=== PATIENT | male | born 1960 | race Asian ===

== ENCOUNTER 2020-02-02 10:30 | Inpatient (IN) | payer MEDICAID ==
[~2020-02-02] VITALS: Ht 170.2 cm; Wt 74.4 kg
--- NOTE | 2020-02-02 10:21 | NUR ---
ED Nurse Note: PT ARRIVED WITH RA 68 FROM HOME D/T "COVID LIKE SYMPTOMS" PER EMS. X 2 WEEKS. PT DENIES PAIN, COUGH, FEVER, RESPIRTAORY SYMPTOMS. PT AFEBRILE UPON TRIAGE 98.6F ORAL. PT CALM AND COOPERATIVE. PT IV SITE ESTABLISEHD PER RA[facility]
[2020-02-02 10:28] VITALS: BP 173/84
--- NOTE | 2020-02-02 10:42 | NUR ---
ED Nurse Note: PT BLOOD SPECIMEN COLLECTED AND SENT TO LAB
--- NOTE | 2020-02-02 11:00 | NUR ---
ED Nurse Note: Informed pt that urine sample needs to be collected, provided pt with urinary bottle.
[2020-02-02 11:11] LABS: BASOPHILS % (AUTO) 1.2 % (0.0-2.0); EOSINOPHILS % (AUTO) 0.7 % (0.0-3.0); HEMATOCRIT 41.1 % (42.0-52.0); HEMOGLOBIN 12.2 G/DL (14.2-18.0); LYMPHOCYTES % (AUTO) 18.5 % (20.0-45.0); MEAN CORPUSCULAR VOLUME 70 FL (80-99); MONOCYTES % (AUTO) 6.9 % (1.0-10.0); NEUTROPHILS % (AUTO) 72.8 % (45.0-75.0); PLATELET COUNT 264 K/UL (150-450); RED BLOOD COUNT 5.87 M/UL (4.70-6.10); RED CELL DISTRIBUTION WIDTH 13.5 % (11.6-14.8); WHITE BLOOD COUNT 8.4 K/UL (4.8-10.8)
--- NOTE | 2020-02-02 11:17 | NUR ---
ED Nurse Note: XRAY AT BEDSIDE
[2020-02-02 11:19] LABS: ALANINE AMINOTRANSFERASE 26 U/L (12-78); ALKALINE PHOSPHATASE 60 U/L (46-116); ANION GAP 11 mmol/L (5-15); ASPARTATE AMINO TRANSFERASE 21 U/L (15-37); BILIRUBIN,TOTAL 0.2 MG/DL (0.2-1.0); BLOOD UREA NITROGEN 15 mg/dL (7-18); CARBON DIOXIDE 19 MMOL/L (21-32); CHLORIDE 115 MMOL/L (98-107); CREATINE KINASE 112 U/L (26-308); CREATININE 0.6 MG/DL (0.55-1.30); SODIUM 144 MMOL/L (136-145)
[2020-02-02 11:20] LABS: CALCIUM 5.8 MG/DL (8.5-10.1)
[2020-02-02 11:37] LABS: ALBUMIN 2.1 G/DL (3.4-5.0)
--- NOTE | 2020-02-02 12:08 | NUR ---
ED Nurse Note: pt asleep in bed. no distress noted at this time.
--- NOTE | 2020-02-02 12:22 | Diagnostic Imaging Report ---
Procedure: XRAY Chest 1v Reason for study: Cough. Comparison films: None. FINDINGS: A single one view chest is obtained. Vascularity is normal. The lung jauregui are clear bilaterally. Cardiac and mediastinal silhouette are within normal limits. CP angles are sharp. The bony thorax appear unremarkable. IMPRESSION: NO ACUTE CARDIOPULMONARY DISEASE.
[2020-02-02 12:30] VITALS: BP 155/68
--- NOTE | 2020-02-02 12:30 | NUR ---
ED Nurse Note: Pt unable to provide urine at this time.
[2020-02-02] MEDS ORDERED: Calcium Gluconate 1gm/50ml 50 ML IVPB ONE (13:00)
--- NOTE | 2020-02-02 13:17 | NUR ---
ED Nurse Note: Pt taken to CT on [place]
--- NOTE | 2020-02-02 13:25 | NUR ---
ED Nurse Note: Pt returned from CT
--- NOTE | 2020-02-02 13:50 | Diagnostic Imaging Report ---
EXAM: CT CT Head no Contrast INDICATION: Headache. ALOC. TECHNIQUE: Axial images of the brain were obtained with subsequent sagittal and coronal reformats. All CT scans at this facility are performed using dose modulation techniques as appropriate to a performed exam including the following: automated exposure control with adjustment of the mA and/or kV according to patient size. COMPARISON STUDY: None. RADIATION DOSE: CTDIvol: 53.4 mGy DLP: 1125.7 mGy-cm Dose information generated by the CT scanner is available in PACS. FINDINGS: There is mild age-related volume loss. There is no acute large territory cortical infarct, hemorrhage, mass effect or shift. Ventricles and cisterns as well as brainstem and posterior fossa appear unremarkable. The sellar region is normal. Sinuses, mastoid air cells and bony calvarium appear intact. IMPRESSION: Mild age-related senescent changes. No acute intracranial abnormality.
--- NOTE | 2020-02-02 14:03 | Emergency Room Report ---
History of Present Illness General Chief Complaint: General Complaint Source: Patient Present Illness HPI Patient brought in by EMS. The only thing they say is the family suggested that the patient probably had COVID-19. Mom apparently reported that the patient was shaking and shivering. He was altered before and after this occurred. He was not incontinent. There is no trauma that occurred. This never happened before. The patient is unable to give a history at this time and is fairly confused. His brothers deny major medical problems. They were not present when the patient had the episode and event was reported by the patient's mother. 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 Patient History Limited by: medical condition Past Medical History: see triage record Social History: Denies: smoking Social History Narrative Lives with 90-year-old mother Reviewed Nursing Documentation: PMH: Agreed; PSxH: Agreed Nursing Documentation-PMH Past Medical History: No History, Except For Review of Systems All Other Systems: limited Physical Exam Vital Signs Date Time Temp Pulse Resp B/P (MAP) Pulse Ox O2 Delivery O2 Flow Rate FiO2 02/02/20 10:21 98.6 84 18 99 02/02/20 10:21 184/99 (127) Room Air Sp02 EP Interpretation: reviewed, normal General Appearance: well appearing, alert, non-toxic Head: normocephalic Eyes: bilateral eye normal inspection, bilateral eye PERRL, bilateral eye EOMI ENT: moist mucus membranes Neck: full range of motion, supple Respiratory: chest non-tender, lungs clear, normal breath sounds Cardiovascular #1: regular rate, rhythm, no edema Cardiovascular #2: 2+ radial (L) Gastrointestinal: normal inspection, normal bowel sounds, non tender, no mass, non-distended Musculoskeletal: back normal, normal range of motion, other Neurologic: alert, motor strength/tone normal, 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 Reason for critical care: Discussion with family for alternative history, treatment of critical hypo-Nahun C. Katelyn Possible complications: hypotension, hypertension, PR, shock, arrhythmias, metabolic acidosis, end organ damage, respiratory failure. Interventions: Repeat evaluations, history from family members, treatment of critical hypocalcemia, treatment of hypokalemia, treatment of hypomagnesemia Course: Patient presents with shaking episode of unclear etiology. Alternative history obtained from family. Critical hypocalcemia identified. Blood gas and ionized calcium ordered. Treatment of hypocalcemia initiated. Potassium given for hypokalemia. Magnesium ordered with hypocalcemia. Magnesium ordered. Repeat evaluation. Consultations: nursing staff, EMS, family Performed by: Dr. Maya Tolerated well condition = serious Medical Decision Making Diagnostic Impression: Primary Impression: Hypocalcemia Additional Impressions: Hypokalemia Delirium Hypomagnesemia ER Course Patient presents with altered mentation after shaking episode. Apparently prior medical conditions and confusion denied by family. Differential includes seizure, electrolyte abnormality, arrhythmia, occult infection amongst others. Nonfocal neurologic exam. Patient evaluated with EKG, chest x-ray, CT of the head and labs. Patient treated with IV hydration. Patient placed on manager monitoring. Family concerned about COVID-19. COVID-19 testing ordered. Complex patient presentation. EKG without injury. Chest x-ray no infiltrates. CT of the head unremarkable. Labs significant for critical hypocalcemia. Potassium also low. Hyperchloremic metabolic acidosis. Venous blood gas and ionized calcium ordered. Ionized calcium low. Calcium started. Potassium given. Magnesium low. Magnesium given. Discussed with patient's brothers (García and Scott). Patient still somewhat confused but slightly improved. Admit to telemetry. Laboratory Tests Test 02/02/20 10:30 02/02/20 11:42 02/02/20 11:50 White Blood Count 8.4 K/UL (4.8-10.8) Red Blood Count 5.87 M/UL (4.70-6.10) Hemoglobin 12.2 G/DL (14.2-18.0) L Hematocrit 41.1 % (42.0-52.0) L Mean Corpuscular Volume 70 FL (80-99) L Mean Corpuscular Hemoglobin 20.8 PG (27.0-31.0) L Mean Corpuscular Hemoglobin Concent 29.7 G/DL (32.0-36.0) L Red Cell Distribution Width 13.5 % (11.6-14.8) Platelet Count 264 K/UL (150-450) Mean Platelet Volume 6.1 FL (6.5-10.1) L Neutrophils (%) (Auto) 72.8 % (45.0-75.0) Lymphocytes (%) (Auto) 18.5 % (20.0-45.0) L Monocytes (%) (Auto) 6.9 % (1.0-10.0) Eosinophils (%) (Auto) 0.7 % (0.0-3.0) Basophils (%) (Auto) 1.2 % (0.0-2.0) Sodium Level 144 MMOL/L (136-145) Potassium Level 3.0 MMOL/L (3.5-5.1) L Chloride Level 115 MMOL/L (98-107) H Carbon Dioxide Level 19 MMOL/L (21-32) L Anion Gap 11 mmol/L (5-15) Blood Urea Nitrogen 15 mg/dL (7-18) Creatinine 0.6 MG/DL (0.55-1.30) Estimated Glomerular Filtration Rate > 60 mL/min (>60) Glucose Level 83 MG/DL (74-106) Calcium Level 5.8 MG/DL (8.5-10.1) *L Magnesium Level 1.3 MG/DL (1.8-2.4) L Total Bilirubin 0.2 MG/DL (0.2-1.0) Aspartate Amino Transferase (AST) 21 U/L (15-37) Alanine Aminotransferase (ALT) 26 U/L (12-78) Alkaline Phosphatase 60 U/L (46-116) Total Creatine Kinase 112 U/L (26-308) Total Protein 5.3 G/DL (6.4-8.2) L Albumin 2.1 G/DL (3.4-5.0) L Globulin 3.2 g/dL Salicylates Level 0.3 ug/mL (2.8-20) L Acetaminophen Level < 2 MCG/ML (10-30) L Serum Alcohol < 3 mg/dL Venous Blood pH 7.326 Venous Blood Partial Pressure CO2 51.9 Venous Blood Partial Pressure O2 31.5 Venous Blood HCO3 26.5 Venous Blood Total Carbon Dioxide 51.9 Venous Blood Base Excess -0.2 Venous Blood Carboxyhemoglobin 0.6 % (0.5-1.5) Methemoglobin 0.4 Ionized Calcium (Measured) 1.07 mmol/L (1.10-1.35) L Microbiology Date/Time Source Procedure Growth Status 02/02/20 10:30 Nasopharynx SARS-CoV-2 RdRp Gene Assay - Final Complete EKG Diagnostic Results Rate: normal Rhythm: NSR ST Segments: no acute changes Rhythm Strip Diag. Results EP Interpretation: yes Rhythm: NSR, no PVC's, no ectopy Chest X-Ray Diagnostic Results Chest X-Ray Diagnostic Results : Chest X-Ray Ordered: Yes # of Views/Limited/Complete: 1 View Indication: Chest Pain EP Interpretation: Yes Interpretation: no consolidation, no effusion, no pneumothorax Impression: No acute disease Electronically Signed by: Electronically signed by García Maya MD Last Vital Signs Date Time Temp Pulse Resp B/P (MAP) Pulse Ox O2 Delivery O2 Flow Rate FiO2 02/02/20 20:00 97.9 73 19 135/79 (97) 96 02/02/20 17:03 Room Air Status: improved Disposition: ADMITTED INPATIENT Condition: Serious Referrals: Yamila ALCANTARA,REFERRING (PCP) García Maya MD Feb 02, 2020 14:03
[2020-02-02 14:30] VITALS: BP 145/79
--- NOTE | 2020-02-02 14:30 | NUR ---
ED Nurse Note: Pt said he has tried to attempt to urinate in urinary bottle but cant at this time. pt is AOx4 and refuses I&O catheter.
--- NOTE | 2020-02-02 15:14 | NUR ---
ED Nurse Note: telephone report given to CRIS Denson for continuity of care.
--- NOTE | 2020-02-02 15:15 | NUR ---
ED Nurse Note: waiting for admission packet before taking pt to room 214-2.
--- NOTE | 2020-02-02 15:33 | NUR ---
ED Nurse Note: Per [facility]N 214-2 room is not clean yet hold to transfer pt to floor
--- NOTE | 2020-02-02 15:45 | NUR ---
ED Nurse Note: called tele floor to follow up on room assignment, was informed house keeping will be done in 5 minutes.
--- NOTE | 2020-02-02 15:50 | History and Physical ---
History of Present Illness General Date patient seen: Feb 02, 2020 Time patient seen: 16:31 Reason for Hospitalization: Tremors Present Illness HPI 59-year-old gentleman who is a poor historian and denies any past medical history comes to the emergency room with confusion and tremors he states for the past week. The tremors came on slowly and became progressively worse. Tremors are in every extremity of his body. Patient denies any drug use. He lives alone and cannot recall how he got to the emergency room or who called EMS. He has no pain anywhere. Denies taking any medications. Denies fevers or being in contact with anyone with COVID. This never happened before and cannot give any useful history. Allergies: Coded Allergies: No Known Allergies (Unverified , 02/02/20) COVID-19 Screening Contact w/high risk pt: No Recent Travel to affected area: No Experienced COVID-19 symptoms?: No Patient History Limited by: medical condition History Provided By: Patient Healthcare decision maker Resuscitation status Full Advanced Directive on File Family History Family History: Essential hypertension Social History Social History: (1) Non-smoker Review of Systems Constitutional: Reports: malaise; Denies: chills, sweats, fever Eye: Reports: no symptoms ENT: Reports: no symptoms Respiratory: Reports: no symptoms Cardiovascular: Reports: no symptoms Gastrointestinal: Reports: no symptoms Genitourinary: Reports: no symptoms Musculoskeletal: Reports: no symptoms Skin: Reports: no symptoms Neurological: Reports: paresthesia, tremors; Denies: seizure, focal weakness, syncope, dizziness Endocrine: Reports: no symptoms Hematologic/Lymphatic: Reports: no symptoms Physical Exam General Appearance: no apparent distress, confused, alert oriented x3 Lines, tubes and drains: peripheral HEENT: normocephalic, atraumatic, PERRL Neck: normal alignment, supple, normal inspection Respiratory/Chest: chest wall non-tender, lungs clear, normal breath sounds, no respiratory distress, no accessory muscle use Cardiovascular/Chest: normal rate, regularly irregular, no gallop/murmur, no JVD Abdomen: normal bowel sounds, non tender, soft, no organomegaly Extremities: normal range of motion, non-tender, normal inspection Neurologic: abnormal gait, alert, responsive, abnormal CN, motor weakness, disoriented, depressed affect Last 24 Hour Vital Signs Date Time Temp Pulse Resp B/P (MAP) Pulse Ox O2 Delivery O2 Flow Rate FiO2 02/02/20 14:30 98.2 89 15 145/79 100 Room Air 02/02/20 12:30 98.8 77 19 155/68 98 Room Air 02/02/20 10:28 73 22 Room Air 02/02/20 10:28 98.6 73 22 173/84 100 Room Air 02/02/20 10:21 98.6 84 18 184/99 (127) 99 Room Air 02/02/20 10:21 98.6 84 18 99 Laboratory Tests Test 02/02/20 10:30 02/02/20 11:42 02/02/20 11:50 White Blood Count 8.4 K/UL (4.8-10.8) Red Blood Count 5.87 M/UL (4.70-6.10) Hemoglobin 12.2 G/DL (14.2-18.0) L Hematocrit 41.1 % (42.0-52.0) L Mean Corpuscular Volume 70 FL (80-99) L Mean Corpuscular Hemoglobin 20.8 PG (27.0-31.0) L Mean Corpuscular Hemoglobin Concent 29.7 G/DL (32.0-36.0) L Red Cell Distribution Width 13.5 % (11.6-14.8) Platelet Count 264 K/UL (150-450) Mean Platelet Volume 6.1 FL (6.5-10.1) L Neutrophils (%) (Auto) 72.8 % (45.0-75.0) Lymphocytes (%) (Auto) 18.5 % (20.0-45.0) L Monocytes (%) (Auto) 6.9 % (1.0-10.0) Eosinophils (%) (Auto) 0.7 % (0.0-3.0) Basophils (%) (Auto) 1.2 % (0.0-2.0) Sodium Level 144 MMOL/L (136-145) Potassium Level 3.0 MMOL/L (3.5-5.1) L Chloride Level 115 MMOL/L (98-107) H Carbon Dioxide Level 19 MMOL/L (21-32) L Anion Gap 11 mmol/L (5-15) Blood Urea Nitrogen 15 mg/dL (7-18) Creatinine 0.6 MG/DL (0.55-1.30) Estimat Glomerular Filtration Rate > 60 mL/min (>60) Glucose Level 83 MG/DL (74-106) Calcium Level 5.8 MG/DL (8.5-10.1) *L Magnesium Level 1.3 MG/DL (1.8-2.4) L Total Bilirubin 0.2 MG/DL (0.2-1.0) Aspartate Amino Transf (AST/SGOT) 21 U/L (15-37) Alanine Aminotransferase (ALT/SGPT) 26 U/L (12-78) Alkaline Phosphatase 60 U/L (46-116) Total Creatine Kinase 112 U/L (26-308) Total Protein 5.3 G/DL (6.4-8.2) L Albumin 2.1 G/DL (3.4-5.0) L Globulin 3.2 g/dL Salicylates Level 0.3 ug/mL (2.8-20) L Acetaminophen Level < 2 MCG/ML (10-30) L Serum Alcohol < 3 mg/dL Venous Blood pH 7.326 Venous Blood Partial Pressure CO2 51.9 Venous Blood Partial Pressure O2 31.5 Venous Blood HCO3 26.5 Venous Blood Total Carbon Dioxide 51.9 Venous Blood Base Excess -0.2 Venous Blood Carboxyhemoglobin 0.6 % (0.5-1.5) Methemoglobin 0.4 Ionized Calcium (Measured) 1.07 mmol/L (1.10-1.35) L Microbiology Date/Time Source Procedure Growth Status 02/02/20 10:30 Nasopharynx SARS-CoV-2 RdRp Gene Assay - Final Complete Height (Feet): 5 Height (Inches): 8.00 Weight (Pounds): 140 Medications Current Medications Medications (Trade) Dose Ordered Sig/Amy Route PRN Reason Start Time Stop Time Status Last Admin Dose Admin Magnesium Sulfate 100 ml @ 100 mls/hr ONCE ONCE IVPB 02/02/20 15:15 02/02/20 16:14 02/02/20 15:17 Sodium Chloride 1,000 ml @ 300 mls/hr Q3H20M IV 02/02/20 11:00 03/03/20 10:59 02/02/20 14:29 Assessment/Plan Problem List: (1) Hypocalcemia ICD Codes: E83.51 - Hypocalcemia SNOMED: 3696640 (2) Delirium ICD Codes: R41.0 - Disorientation, unspecified SNOMED: 4503328 (3) Hypokalemia ICD Codes: E87.6 - Hypokalemia SNOMED: 38537161 (4) Hypomagnesemia ICD Codes: E83.42 - Hypomagnesemia SNOMED: 661272534 (5) Microcytic anemia ICD Codes: D50.9 - Iron deficiency anemia, unspecified SNOMED: 635644443 Status: stable Assessment/Plan: 59-year-old gentleman with no significant past medical history presents to the emergency room with confusion and tremors for 1 week. #Hypocalcemia 0 corrected at 6.2 inonized 1.07-unknown etiology #Tremors #Confusion #Hypokalemia #Hypomagnesemia - Admit for telemetry monitoring - 1 Gram calcium gluconate given - 40mgq potassium given - Magnesium repleted - Check PTH and Vit D - Monitor electrolytes - Consult to nephrology appreciate recs - Consult to neurology appreciate recs #Micorcytic anemia -Iron studies -FOBT -Monitor CBC Heparin subq 5000 BID PT evaluation Regular diet I spent 75 min on this admission with 40 min with patient. I coordinated with RNs and consultants. I did a literature review on hypocalcemia. Fermin Arroyo M.D. Feb 02, 2020 15:50
--- NOTE | 2020-02-02 16:00 | NUR ---
TRANSFER TO FLOOR: Patient transferred to TELE as ordered, per ERMD. Report given to CRIS Denson. Belongings given to pt.
--- NOTE | 2020-02-02 16:15 | NUR ---
PT received from ED nurse Tg RN, Qigs include shirt shorts and ID (all at bedside). Complains of slight SOB but 02 is 98% and stats he feels better after lying down. Patient seems anxious, responses are delayed and he seems confused. Patient shaking lower legs, feet, arms and hands. Does not hold eye contact. Vitals taken (158/92, 98% on RA, 73bpm, 20 resp, 98.1F) and white board updated. Dr. Arroyo did assesment at bedside. Pulses weak and cool to touch on bilateral feet. Bed locked and in lowest position, call light within reach. Non slip socks provided but pt [id number] his slippers.
[2020-02-02 16:44] VITALS: BP 158/92
[2020-02-02] MEDS ORDERED: Milk of Magnesia 30ml Ud ORAL PRN (17:00)
--- NOTE | 2020-02-02 19:24 | NUR ---
HAND-OFF: Report given to Jenny LYNCH.
[2020-02-02 19:55] LABS: % IRON SATURATION 10 % (15-50); IRON 26 ug/dL (50-175); TOTAL IRON BINDING CAPACITY 264 ug/dL (250-450)
[2020-02-02 20:00] VITALS: BP 135/79
--- NOTE | 2020-02-02 20:12 | NUR ---
NURSE NOTES: Received patient in bed, awake, alert, oriented x4, has delayed speech pattern, on room air, able to ambulate, IV site is clean dry and intact, call light is within reach, bed is lowered, locked, alarm is on, will continue to monitor for comfort and safety.
--- NOTE | 2020-02-02 22:51 | Neurology Progress Note ---
Interim History Interim History Interim History 59-year-old gentleman who is a poor historian and denies any past medical history comes to the emergency room with confusion and tremors he states for the past week. The tremors came on slowly and became progressively worse. Tremors are in every extremity of his body. Patient denies any drug use. He lives alone and cannot recall how he got to the emergency room or who called EMS. Objective Physical Exam Last Vital Signs Date Time Temp Pulse Resp B/P (MAP) Pulse Ox O2 Delivery O2 Flow Rate FiO2 02/02/20 21:00 Room Air 02/02/20 20:02 67 02/02/20 20:00 97.9 19 135/79 (97) 96 Laboratory Tests Test 02/02/20 10:30 02/02/20 11:42 02/02/20 11:50 02/02/20 19:10 White Blood Count 8.4 K/UL (4.8-10.8) Red Blood Count 5.87 M/UL (4.70-6.10) Hemoglobin 12.2 G/DL (14.2-18.0) L Hematocrit 41.1 % (42.0-52.0) L Mean Corpuscular Volume 70 FL (80-99) L Mean Corpuscular Hemoglobin 20.8 PG (27.0-31.0) L Mean Corpuscular Hemoglobin Concent 29.7 G/DL (32.0-36.0) L Red Cell Distribution Width 13.5 % (11.6-14.8) Platelet Count 264 K/UL (150-450) Mean Platelet Volume 6.1 FL (6.5-10.1) L Neutrophils (%) (Auto) 72.8 % (45.0-75.0) Lymphocytes (%) (Auto) 18.5 % (20.0-45.0) L Monocytes (%) (Auto) 6.9 % (1.0-10.0) Eosinophils (%) (Auto) 0.7 % (0.0-3.0) Basophils (%) (Auto) 1.2 % (0.0-2.0) Sodium Level 144 MMOL/L (136-145) Potassium Level 3.0 MMOL/L (3.5-5.1) L Chloride Level 115 MMOL/L (98-107) H Carbon Dioxide Level 19 MMOL/L (21-32) L Anion Gap 11 mmol/L (5-15) Blood Urea Nitrogen 15 mg/dL (7-18) Creatinine 0.6 MG/DL (0.55-1.30) Estimat Glomerular Filtration Rate > 60 mL/min (>60) Glucose Level 83 MG/DL (74-106) Calcium Level 5.8 MG/DL (8.5-10.1) *L Magnesium Level 1.3 MG/DL (1.8-2.4) L Total Bilirubin 0.2 MG/DL (0.2-1.0) Aspartate Amino Transf (AST/SGOT) 21 U/L (15-37) Alanine Aminotransferase (ALT/SGPT) 26 U/L (12-78) Alkaline Phosphatase 60 U/L (46-116) Total Creatine Kinase 112 U/L (26-308) Total Protein 5.3 G/DL (6.4-8.2) L Albumin 2.1 G/DL (3.4-5.0) L Globulin 3.2 g/dL Thyroid Stimulating Hormone (TSH) 2.502 uiU/mL (0.358-3.740) Salicylates Level 0.3 ug/mL (2.8-20) L Acetaminophen Level < 2 MCG/ML (10-30) L Serum Alcohol < 3 mg/dL Venous Blood pH 7.326 Venous Blood Partial Pressure CO2 51.9 Venous Blood Partial Pressure O2 31.5 Venous Blood HCO3 26.5 Venous Blood Total Carbon Dioxide 51.9 Venous Blood Base Excess -0.2 Venous Blood Carboxyhemoglobin 0.6 % (0.5-1.5) Methemoglobin 0.4 Ionized Calcium (Measured) 1.07 mmol/L (1.10-1.35) L Calcium (Send out) Pending Iron Level 26 ug/dL (50-175) L Total Iron Binding Capacity 264 ug/dL (250-450) Percent Iron Saturation 10 % (15-50) L Unsaturated Iron Binding 238 ug/dL (112-346) Vitamin D 25-Hydroxy Pending 25-Hydroxy Vitamin D2 Pending 25-Hydroxy Vitamin D3 Pending Parathyroid Hormone (Intact) Pending Parathyroid Hormone Related Protein Pending Head: normocophalic Neck: no rigidity Neurologic Exam Mental Status: awake, alert Speech: normal speech Objective COnfused tangential, alert Follows commands LE weakness with spasticity Impression/Recommendations Problems: (1) Hypomagnesemia (2) Hypokalemia (3) Hypocalcemia (4) Delirium (5) Microcytic anemia Status: stable Diagnostic Impression Acute encephalopathy, metabolic Hypocalcemia Tremors LE weakness IVFs Replace CA PT Ciro Fry MD Feb 02, 2020 22:51
[2020-02-03] VITALS: BP 134/81
[2020-02-03 04:00] VITALS: BP 143/93
[2020-02-03 07:17] LABS: ANION GAP 9 mmol/L (5-15); BLOOD UREA NITROGEN 21 mg/dL (7-18); CARBON DIOXIDE 26 MMOL/L (21-32); CHLORIDE 100 MMOL/L (98-107); CREATININE 1.1 MG/DL (0.55-1.30); POTASSIUM 4.5 MMOL/L (3.5-5.1); SODIUM 135 MMOL/L (136-145)
[2020-02-03 07:25] LABS: BASOPHILS % (AUTO) 1.1 % (0.0-2.0); EOSINOPHILS % (AUTO) 0.9 % (0.0-3.0); HEMATOCRIT 41.6 % (42.0-52.0); HEMOGLOBIN 12.2 G/DL (14.2-18.0); LYMPHOCYTES % (AUTO) 17.5 % (20.0-45.0); MEAN CORPUSCULAR VOLUME 69 FL (80-99); NEUTROPHILS % (AUTO) 71.5 % (45.0-75.0); PLATELET COUNT 295 K/UL (150-450); RED CELL DISTRIBUTION WIDTH 12.4 % (11.6-14.8); WHITE BLOOD COUNT 6.8 K/UL (4.8-10.8)
--- NOTE | 2020-02-03 07:30 | NUR ---
NURSE NOTES: Received report from CRIS Avlarado. Pt is stable and sitting in bed eating breakfast. Pt is AOx4, with delayed responses. Pt has no S/S or complaints of distress at this time. Pt bed is low and locked, yellow socks on and instructed to call for help. Will continue to monitor.
[2020-02-03 08:00] VITALS: BP 158/89
[2020-02-03] MEDS ORDERED: Heparin 5000 units/ml inj SUBQ SCH (09:00)
--- NOTE | 2020-02-03 09:45 | NUR ---
PT EVALUATION NOTE Patient seen for initial evaluation and treatment initiated. Patient presents with generalized weakness, tremors and spasticity in his extremities and impaired balance which affects patient's ability to perform mobility tasks safely. Patient requires min assist for bed mobility and transfers with FWW. Patient demonstrates LE fatigue with performance of exercises and standing limiting patient's ability to ambulate. Patient will benefit from skilled inpatient PT intervention to increase strength and postural stability for improved balance, safety and level of functional mobility. Recommend discharge home with family assistance vs short term SNF for continued rehab depending on patient's progress. Patient may need FWW for ambulation depending on patient's progress. Addendum: 02/03/20 at 1356 by JAIDEN LINO PT Amended: Links added.
--- NOTE | 2020-02-03 10:30 | General Progress Note ---
Assessment/Plan Problem List: (1) Hypocalcemia ICD Codes: E83.51 - Hypocalcemia SNOMED: 4431166 (2) Delirium ICD Codes: R41.0 - Disorientation, unspecified SNOMED: 5975383 (3) Hypokalemia ICD Codes: E87.6 - Hypokalemia SNOMED: 18403714 (4) Hypomagnesemia ICD Codes: E83.42 - Hypomagnesemia SNOMED: 655725242 (5) Microcytic anemia ICD Codes: D50.9 - Iron deficiency anemia, unspecified SNOMED: 033102000 Status: stable Assessment/Plan: 59-year-old gentleman with no significant past medical history presents to the emergency room with confusion and tremors for 1 week. #Hypocalcemia 0 corrected at 6.2 inonized 1.07-unknown etiology - improving #Tremors #Confusion #Hypokalemia #Hypomagnesemia - Admit for telemetry monitoring - 1 Gram calcium gluconate given - 40mgq potassium given - Magnesium replete - Check PTH and Vit D - Monitor electrolytes - Consult to nephrology appreciate recs - Consult to neurology appreciate recs -Consult to phycology #Microcytic anemia -Iron studies show iron deficieny -Starting Venofer 100mg for 5 days -FOBT -Monitor CBC Heparin subq 5000 BID PT evaluation Regular diet I spent 40 min on this admission with 40 min with patient. I coordinated with RNs and consultants. I did a literature review on hypocalcemia. Subjective Date patient seen: Feb 03, 2020 Time patient seen: 10:22 Constitutional: Reports: no symptoms HEENT: Reports: no symptoms Cardiovascular: Reports: no symptoms Respiratory: Reports: no symptoms Gastrointestinal/Abdominal: Reports: no symptoms Genitourinary: Reports: no symptoms Neurologic/Psychiatric: Reports: anxiety, tremors, weakness Endocrine: Reports: no symptoms Hematologic/Lymphatic: Reports: no symptoms Allergies: Coded Allergies: No Known Allergies (Unverified , 02/02/20) Subjective Patient slow to speak but no complaints. Objective Last 24 Hour Vital Signs Date Time Temp Pulse Resp B/P (MAP) Pulse Ox O2 Delivery O2 Flow Rate FiO2 02/03/20 09:00 Room Air 02/03/20 08:00 97.7 91 20 158/89 (112) 99 02/03/20 08:00 90 02/03/20 04:00 97.7 60 19 143/93 (110) 98 02/03/20 03:30 61 02/03/20 00:00 97.7 61 19 134/81 (98) 98 02/02/20 23:33 66 02/02/20 21:00 Room Air 02/02/20 20:02 67 02/02/20 20:00 97.9 73 19 135/79 (97) 96 02/02/20 17:03 Room Air 02/02/20 16:44 98.1 111 20 158/92 (114) 98 02/02/20 16:00 97.9 71 24 153/87 98 Room Air 02/02/20 16:00 91 02/02/20 14:30 98.2 89 15 145/79 100 Room Air 02/02/20 12:30 98.8 77 19 155/68 98 Room Air 02/02/20 10:28 73 22 Room Air 02/02/20 10:28 98.6 73 22 173/84 100 Room Air Intake and Output 02/02/20 02/03/20 19:00 07:00 Intake Total 1050 ml Output Total 0 ml Balance 1050 ml Intake Oral 120 ml IV Total 930 ml Output Urine Total 0 ml # Voids 1 Laboratory Tests 02/02/20 10:30: White Blood Count 8.4, Red Blood Count 5.87, Hemoglobin 12.2L, Hematocrit 41.1L , Mean Corpuscular Volume 70L, Mean Corpuscular Hemoglobin 20.8L, Mean Corpuscular Hemoglobin Concent 29.7L, Red Cell Distribution Width 13.5, Platelet Count 264, Mean Platelet Volume 6.1L, Neutrophils (%) (Auto) 72.8, Lymphocytes (%) (Auto) 18.5L, Monocytes (%) (Auto) 6.9, Eosinophils (%) (Auto) 0.7, Basophils (%) (Auto) 1.2, Sodium Level 144, Potassium Level 3.0L, Chloride Level 115H, Carbon Dioxide Level 19L, Anion Gap 11, Blood Urea Nitrogen 15, Creatinine 0.6, Estimat Glomerular Filtration Rate > 60, Glucose Level 83, Calcium Level 5.8*L, Magnesium Level 1.3L, Total Bilirubin 0.2, Aspartate Amino Transf (AST/SGOT) 21, Alanine Aminotransferase (ALT/SGPT) 26, Alkaline Phosphatase 60, Total Creatine Kinase 112, Total Protein 5.3L, Albumin 2.1L, Globulin 3.2, Thyroid Stimulating Hormone (TSH) 2.502, Salicylates Level 0.3L, Acetaminophen Level < 2L, Serum Alcohol < 3 02/02/20 11:42: Venous Blood pH 7.326, Venous Blood Partial Pressure CO2 51.9, Venous Blood Partial Pressure O2 31.5, Venous Blood HCO3 26.5, Venous Blood Total Carbon Dioxide 51.9, Venous Blood Base Excess -0.2, Venous Blood Carboxyhemoglobin 0.6 , Methemoglobin 0.4 02/02/20 11:50: Ionized Calcium (Measured) 1.07L 02/02/20 19:10: Calcium (Send out) [Pending], Iron Level 26L, Total Iron Binding Capacity 264, Percent Iron Saturation 10L, Unsaturated Iron Binding 238, Vitamin D 25-Hydroxy [Pending], 25-Hydroxy Vitamin D2 [Pending], 25-Hydroxy Vitamin D3 [Pending], Parathyroid Hormone (Intact) [Pending], Parathyroid Hormone Related Protein [ Pending] 02/03/20 06:19: White Blood Count 6.8, Red Blood Count 6.00, Hemoglobin 12.2L, Hematocrit 41.6L , Mean Corpuscular Volume 69L, Mean Corpuscular Hemoglobin 20.4L, Mean Corpuscular Hemoglobin Concent 29.4L, Red Cell Distribution Width 12.4, Platelet Count 295, Mean Platelet Volume 7.0, Neutrophils (%) (Auto) 71.5, Lymphocytes (%) (Auto) 17.5L, Monocytes (%) (Auto) 9.0, Eosinophils (%) (Auto) 0.9, Basophils (%) (Auto) 1.1, Sodium Level 135L, Potassium Level 4.5, Chloride Level 100, Carbon Dioxide Level 26, Anion Gap 9, Blood Urea Nitrogen 21H, Creatinine 1.1#, Estimat Glomerular Filtration Rate > 60, Glucose Level 120H, Calcium Level 9.0# Height (Feet): 5 Height (Inches): 7.00 Weight (Pounds): 164 General Appearance: no apparent distress, alert, confused EENT: normal ENT inspection Neck: non-tender, normal alignment, supple Cardiovascular: normal peripheral pulses, normal rate, regular rhythm, no gallop/murmur, no JVD Respiratory/Chest: chest wall non-tender, lungs clear, normal breath sounds, no respiratory distress, no accessory muscle use Abdomen: normal bowel sounds, non tender, soft, no organomegaly, no mass Pelvis: normal external exam Edema: no edema noted Arm (L), no edema noted Arm (R), no edema noted Leg (L), no edema noted Leg (R), no edema noted Pedal (L), no edema noted Pedal (R), no edema noted Generalized Neurologic: abnormal gait, alert, responsive, motor weakness, disoriented, aphasia, depressed affect Skin: normal pigmentation, warm/dry Fermin Arroyo M.D. Feb 03, 2020 10:30
[2020-02-03 11:52] VITALS: BP 143/89
--- NOTE | 2020-02-03 12:42 | Neurology Progress Note ---
Interim History Interim History Interim History still with muscle spasms, likely metabolic rule out myelopathy Objective Physical Exam Last Vital Signs Date Time Temp Pulse Resp B/P (MAP) Pulse Ox O2 Delivery O2 Flow Rate FiO2 02/03/20 11:52 97.9 70 18 143/89 (107) 98 02/03/20 09:00 Room Air Laboratory Tests Test 02/02/20 19:10 02/03/20 06:19 Calcium (Send out) Pending Iron Level 26 ug/dL (50-175) L Total Iron Binding Capacity 264 ug/dL (250-450) Percent Iron Saturation 10 % (15-50) L Unsaturated Iron Binding 238 ug/dL (112-346) Vitamin D 25-Hydroxy Pending 25-Hydroxy Vitamin D2 Pending 25-Hydroxy Vitamin D3 Pending Parathyroid Hormone (Intact) Pending Parathyroid Hormone Related Protein Pending White Blood Count 6.8 K/UL (4.8-10.8) Red Blood Count 6.00 M/UL (4.70-6.10) Hemoglobin 12.2 G/DL (14.2-18.0) L Hematocrit 41.6 % (42.0-52.0) L Mean Corpuscular Volume 69 FL (80-99) L Mean Corpuscular Hemoglobin 20.4 PG (27.0-31.0) L Mean Corpuscular Hemoglobin Concent 29.4 G/DL (32.0-36.0) L Red Cell Distribution Width 12.4 % (11.6-14.8) Platelet Count 295 K/UL (150-450) Mean Platelet Volume 7.0 FL (6.5-10.1) Neutrophils (%) (Auto) 71.5 % (45.0-75.0) Lymphocytes (%) (Auto) 17.5 % (20.0-45.0) L Monocytes (%) (Auto) 9.0 % (1.0-10.0) Eosinophils (%) (Auto) 0.9 % (0.0-3.0) Basophils (%) (Auto) 1.1 % (0.0-2.0) Sodium Level 135 MMOL/L (136-145) L Potassium Level 4.5 MMOL/L (3.5-5.1) Chloride Level 100 MMOL/L (98-107) Carbon Dioxide Level 26 MMOL/L (21-32) Anion Gap 9 mmol/L (5-15) Blood Urea Nitrogen 21 mg/dL (7-18) H Creatinine 1.1 MG/DL (0.55-1.30) # Estimat Glomerular Filtration Rate > 60 mL/min (>60) Glucose Level 120 MG/DL (74-106) H Calcium Level 9.0 MG/DL (8.5-10.1) # Head: normocophalic Neck: no rigidity Neurologic Exam Mental Status: awake, alert Speech: normal speech Objective COnfused tangential, alert Follows commands LE weakness with spasticity Impression/Recommendations Problems: (1) Hypomagnesemia (2) Hypokalemia (3) Hypocalcemia (4) Delirium (5) Microcytic anemia Status: stable Diagnostic Impression Acute encephalopathy, metabolic Hypocalcemia Tremors LE weakness IVFs Replace CA PT Ciro Fry MD Feb 03, 2020 12:42
--- NOTE | 2020-02-03 13:20 | NUR ---
NURSE NOTES: Pt off tele for MRI.
--- NOTE | 2020-02-03 14:16 | NUR ---
NURSE NOTES: Patient's back from Nuclear Meds. Patient's in stable condition. Will continue to monitor. Addendum: 02/03/20 at 1418 by Alondra Willingham RN From MRI....NOT NM
--- NOTE | 2020-02-03 15:28 | Diagnostic Imaging Report ---
EXAM: MRI MRI L Spine no Contrast HISTORY: Back pain and bilateral lower extremity weakness. COMPARISON: No prior studies available for comparison. TECHNIQUE: MR scanning of the lumbar spine includes sagittal T1, T2 and axial T1 and T2 sequences. FINDINGS: There is anatomic alignment. Vertebral bodies are intact without compression deformity. There is normal marrow signal. Mild disc desiccation and disc space narrowing noted at the several levels. There is mild anterior spurring from L2 through L5. No acute paraspinal soft tissue abnormality noted. L1-L2: There is minimal annular prominence without compromise. L2-L3: The L2-L3 disc is unremarkable. L3-L4: The L3-L4 disc is unremarkable. Bilateral moderate facet hypertrophy noted. L4-L5: There is no significant central bulging but there are bilateral right and left lateral bulging approximately 2 mm. Moderate to severe bilateral hypertrophic facet disease and ligamentum flavum thickening also noted. There is slight central thecal sac indentation but spinal canal remains within normal limits. Eccentric disc and facet disease contribute to moderate bilateral foraminal narrowing. L5-S1: Mild broad bulging approximately 1 to 2 mm noted with equal sac indentation only. Spinal canal is within normal limits. Bilateral moderate facet hypertrophy noted. Conus medullaris and cauda equina are unremarkable. IMPRESSION: Mild spondylosis of the lumbar spine as noted above. No significant spinal canal stenosis. Neural foraminal narrowing demonstrated at L4-5 due to combination of eccentric disc and facet disease.
--- NOTE | 2020-02-03 15:45 | NUR ---
NURSE NOTES: Pt reports sharp chest pain that radiates to his L arm. Pain is 10/10. 12 lead EKG done and Troponin stat. MD made aware. Awaiting call back.
--- NOTE | 2020-02-03 15:46 | NUR ---
VENEER JOINTER NOTE PT is residing w/ his mother, Yvonne Dos Santos (speaking Cantonese and Kyrgyz). Pt has two brothers. Emergency contacts: Scott Dos Santos (brother) [phone] and García (brother) [phone]
[2020-02-03 16:00] VITALS: BP 146/83
[2020-02-03] MEDS ORDERED: Nitroglycerin Subl 0.4mg tab SL PRN ×2 (16:00→20:45)
--- NOTE | 2020-02-03 16:02 | NUR ---
CASE MANAGEMENT INS UPDATE HN Tracking#pending NCM:PEND ph#[phone] fax#[phone]
--- NOTE | 2020-02-03 16:20 | NUR ---
NURSE NOTES: MD made aware of Mg of 1.3. MD orders acknowledged and carried out.
--- NOTE | 2020-02-03 16:57 | NUR ---
CASE MANAGEMENT: REVIEW 59 YEAR OLD MALE BIBA FROM HOME CC: FLU LIKE SYMPTOMS SI: ACUTE ENCEPHALOPATHY . DELIRIUM . HYPOCALCEMIA . CONFUSION AND TREMORS T 98.6 HR 84 RR 18 BP 184/99 SAT 99% ROOM AIR K 3.0 CALCIUM 5.8 MAG 1.8 IS: CALCIUM GLUCONATE IV X1 K-DUR 40MEQ PO X1 MAG SULFATE IV X1 NS IVF BOLUS X1 PT EVAL PSYCH CONSULTED NEURO CONSULTED SW CONSULT TO LOCATE FAMILY PATIENT ADMITTED TO TELEMETRY UNIT 02/02/2020 DCP: PATIENT IS FROM HOME
--- NOTE | 2020-02-03 17:34 | NUR ---
CASE MANAGEMENT: DCP PATIENT REFERRED TO [facility] [phone] PH / [phone] Addendum: 02/04/20 at 1528 by AARTI HUMMEL LVN SPOKE WITH ADMITTING DONITA HANCOCK ; STILL REVIEWING AT THIS TIME
--- NOTE | 2020-02-03 19:30 | NUR ---
HAND-OFF: Report given to CRIS Meyer. Pt stable and plan of care endorsed.
[2020-02-03 20:00] VITALS: BP 133/72
--- NOTE | 2020-02-03 20:30 | NUR ---
HAND-OFF: Report given to Valdez Segura RN. Plan of care endorsed. Patient in stable condition, alert and oriented x4, pleasant demeanor. Per Dina's orders, patient is to be transferred to [facility]-surg to 314-1. Patient was transferred via gurney with no incidents noted. Patient was safely transferred into the room [facility], along with his chart and his belongings which was all accounted for in front of patient and CRIS Kellogg. Medications were gathered and brought to Valdez. Right forearm 22g IV running prescribed fluids (magnesium), IV site intact, flushing well, no redness, no induration, no pain / tenderness noted.
[2020-02-03] MEDS ORDERED: Iron Sucrose 100 MG in NS 55 ML IV SCH (21:00)
[2020-02-03] MEDS ORDERED: Milk of Magnesia 30ml Ud ORAL PRN (21:00)
--- NOTE | 2020-02-03 21:00 | NUR ---
NURSE NOTES: Received report from Henry Meyer. Patient from 214-2. Patient is awake, alert and verbally responsive. Able to make needs known. Respiration is even and unlabored. Skin is warm and dry to touch. No complaint of pain or discomfort noted. All belongings at bedside, signed. No cell phone. Kept clean and comfortable. Provided safe environment. Oriented patient to the room. Bed in low and locked position. Iv site noted, iv medication is infusing as ordered. Call light is at bedside. Will continue plan of care.
[2020-02-03] MEDS: Iron Sucrose 100 MG in NS 55 ML IV SCH (21:01)
[2020-02-03] MEDS: Heparin 5000 units/ml inj SUBQ SCH (21:02)
--- NOTE | 2020-02-03 22:30 | NUR ---
NURSE NOTES: Received report from Valdez LYNCH.
[2020-02-04] VITALS: BP 140/82
--- NOTE | 2020-02-04 00:15 | Consultation ---
DATE OF CONSULTATION: 02/03/2020 CONSULTING PHYSICIAN: Tara Kern MD. HISTORY OF PRESENT ILLNESS: This is a 59-year-old male with a history of hypertension who has been admitted to the hospital for medical stabilization. Patient is having episodes of agitation. He is able to answer the questions. However, he is a poor historian. Patient also has a history of anxiety disorder. During the evaluation, he was pleasant and was able to answer the questions. No behavior issues noted. Difficult to sleep at times. Initially when he was admitted, he appeared to be confused and had tremors. Symptoms gradually improved. Still complaining of weakness, tremor, and stiffness. PAST PSYCHIATRIC HISTORY: He has a history of anxiety on no psychotropic medication. PAST MEDICAL HISTORY: Microcytic anemia, hypokalemia, and hypocalcemia. ALLERGIES: No known drug allergies. SUBSTANCE ABUSE HISTORY: No known history of illicit drug use or alcohol. MENTAL STATUS EXAMINATION: Patient is awake, oriented to self, place, situation, did not know the date. Mood is neutral. Affect is constricted, congruent with mood. Thought process is concrete. Thought content, no suicidal or homicidal ideation. Cognition is improving. Insight and judgment is limited. ASSESSMENT: Greenwood I Acute encephalopathy, metabolic due to electrolyte imbalance. Greenwood II Deferred. Greenwood III As above. Greenwood IV Low. Greenwood V 20. PLAN: 1. May benefit from low-dose of antipsychotics. 2. We will add Seroquel 25 mg at bedtime p.r.n. 3. Correct the underlying cause of delirium. Tara Kern M.D. DR: SIGIFREDO JOB#: [id number] CC:
[2020-02-04 04:00] VITALS: BP 126/80
--- NOTE | 2020-02-04 05:30 | NUR ---
NURSE NOTES: Pt. was in bed, asleep, no sob noted. Denies any pain. With bed in it's lowest position, alarmed and locked. Call light was within reach. Able to sleep comfortably. Will continue to monitor.
[2020-02-04 06:20] LABS: BASOPHILS % (AUTO) 1.3 % (0.0-2.0); EOSINOPHILS % (AUTO) 1.3 % (0.0-3.0); HEMATOCRIT 40.6 % (42.0-52.0); HEMOGLOBIN 12.1 G/DL (14.2-18.0); LYMPHOCYTES % (AUTO) 23.7 % (20.0-45.0); MEAN CORPUSCULAR VOLUME 69 FL (80-99); MONOCYTES % (AUTO) 9.4 % (1.0-10.0); NEUTROPHILS % (AUTO) 64.4 % (45.0-75.0); PLATELET COUNT 302 K/UL (150-450); RED BLOOD COUNT 5.89 M/UL (4.70-6.10); RED CELL DISTRIBUTION WIDTH 12.5 % (11.6-14.8); WHITE BLOOD COUNT 5.7 K/UL (4.8-10.8)
[2020-02-04 06:46] LABS: ALANINE AMINOTRANSFERASE 41 U/L (12-78); ALBUMIN 3.4 G/DL (3.4-5.0); ALBUMIN/GLOBULIN RATIO 0.8 (1.0-2.7); ALKALINE PHOSPHATASE 97 U/L (46-116); ANION GAP 8 mmol/L (5-15); ASPARTATE AMINO TRANSFERASE 24 U/L (15-37); BILIRUBIN,TOTAL 0.3 MG/DL (0.2-1.0); BLOOD UREA NITROGEN 20 mg/dL (7-18); CALCIUM 9.1 MG/DL (8.5-10.1); CARBON DIOXIDE 28 MMOL/L (21-32); CHLORIDE 102 MMOL/L (98-107); CREATININE 1.1 MG/DL (0.55-1.30); POTASSIUM 4.2 MMOL/L (3.5-5.1); SODIUM 138 MMOL/L (136-145)
--- NOTE | 2020-02-04 07:20 | NUR ---
HAND-OFF: Report given to Elenita LYNCH.
--- NOTE | 2020-02-04 07:26 | NUR ---
NURSE NOTES: Report received from Al RN, rounds made. Patient AOx4, calm on RA, dangling at bedside, eating breakfast, tolerating well, no NV, no s/s of hypoglycemia. RFA IV heplock intact, site asymptomatic. Call light in reach, bed in lowest position, will continue to monitor.
[2020-02-04 08:00] VITALS: BP 118/69
[2020-02-04] MEDS ORDERED: LORazepam Inj 2mg/ml 1ml IV SCH (09:15)
[2020-02-04] MEDS: Heparin 5000 units/ml inj SUBQ SCH ×2 (09:36→20:28)
--- NOTE | 2020-02-04 10:00 | NUR ---
NURSE NOTES: Discussed with Dr. Arroyo that patient is refusing MRI of thoracic spine due to possible claustrophobia, discussed testing with patient, agrees to have MRI, orders received for Ativan 0.5 mg IV x1 for MRI. Notified Bry in Radiology. Medicated with Ativan as ordered at 0945. Patient sent down to MRI at 1000, via gurney on RA, in stable condition.
--- NOTE | 2020-02-04 10:50 | NUR ---
PT NOTE Attempted to see patient for PT treatment. Patient off floor for MRI, will re-attempt later as schedule permits.
--- NOTE | 2020-02-04 11:04 | General Progress Note ---
Assessment/Plan Problem List: (1) Hypocalcemia ICD Codes: E83.51 - Hypocalcemia SNOMED: 2251974 (2) Delirium ICD Codes: R41.0 - Disorientation, unspecified SNOMED: 4720839 (3) Hypokalemia ICD Codes: E87.6 - Hypokalemia SNOMED: 33488964 (4) Hypomagnesemia ICD Codes: E83.42 - Hypomagnesemia SNOMED: 454816902 (5) Microcytic anemia ICD Codes: D50.9 - Iron deficiency anemia, unspecified SNOMED: 024390510 Status: stable Assessment/Plan: 59-year-old gentleman with no significant past medical history presents to the emergency room with confusion and tremors for 1 week. #Hypocalcemia 0 corrected at 6.2 inonized 1.07-unknown etiology - improving #Tremors - improving #Confusion #Hypokalemia -improving #Hypomagnesemia - improving - 1 Gram calcium gluconate given - 40mgq potassium given - Magnesium replete - Check PTH and Vit D - Monitor electrolytes - Consult to nephrology appreciate recs - Consult to neurology appreciate recs -MRI of spine and brain -Consult to psychology - now on Seroquel at bedtime #Microcytic anemia -Iron studies show iron deficiency -Starting Venofer 100mg for 5 days -FOBT -Monitor CBC Heparin subq 5000 BID PT evaluation Regular diet I spent 40 min on this patient with 20 min face o face. I coordinated with RNs and consultants. I did a literature review on hypocalcemia. Subjective Date patient seen: Feb 04, 2020 Time patient seen: 10:51 ROS Limited/Unobtainable: No Constitutional: Reports: no symptoms HEENT: Reports: no symptoms Cardiovascular: Reports: no symptoms Respiratory: Reports: no symptoms Gastrointestinal/Abdominal: Reports: no symptoms Genitourinary: Reports: no symptoms Neurologic/Psychiatric: Reports: anxiety, tremors, weakness Hematologic/Lymphatic: Reports: no symptoms Allergies: Coded Allergies: No Known Allergies (Unverified , 02/02/20) Subjective Patient is more talkative now and tremors have improved. Objective Last 24 Hour Vital Signs Date Time Temp Pulse Resp B/P (MAP) Pulse Ox O2 Delivery O2 Flow Rate FiO2 02/04/20 09:00 Room Air 02/04/20 08:00 97.3 82 20 118/69 (85) 100 02/04/20 04:00 98.7 59 20 126/80 (95) 98 02/04/20 00:00 98.4 60 20 140/82 (101) 98 02/03/20 21:00 Room Air 02/03/20 20:00 98.6 63 20 133/72 (92) 97 02/03/20 16:29 146/83 02/03/20 16:00 97.5 82 20 146/83 (104) 98 02/03/20 16:00 81 02/03/20 12:00 77 02/03/20 11:52 97.9 70 18 143/89 (107) 98 Intake and Output 02/03/20 02/04/20 19:00 07:00 Intake Total 720 ml 260 ml Output Total 1200 ml 600 ml Balance -480 ml -340 ml Intake Oral 720 ml 200 ml IV Total 60 ml Output Urine Total 1200 ml 600 ml Laboratory Tests 02/03/20 16:00: Troponin I 0.009 02/04/20 05:45: White Blood Count 5.7, Red Blood Count 5.89, Hemoglobin 12.1L, Hematocrit 40.6L , Mean Corpuscular Volume 69L, Mean Corpuscular Hemoglobin 20.5L, Mean Corpuscular Hemoglobin Concent 29.7L, Red Cell Distribution Width 12.5, Platelet Count 302, Mean Platelet Volume 5.9L, Neutrophils (%) (Auto) 64.4, Lymphocytes (%) (Auto) 23.7, Monocytes (%) (Auto) 9.4, Eosinophils (%) (Auto) 1.3, Basophils (%) (Auto) 1.3, Sodium Level 138, Potassium Level 4.2, Chloride Level 102, Carbon Dioxide Level 28, Anion Gap 8, Blood Urea Nitrogen 20H, Creatinine 1.1, Estimat Glomerular Filtration Rate > 60, Glucose Level 113H, Calcium Level 9.1, Total Bilirubin 0.3, Aspartate Amino Transf (AST/SGOT) 24, Alanine Aminotransferase (ALT/SGPT) 41, Alkaline Phosphatase 97, Total Protein 7.9, Albumin 3.4, Globulin 4.5, Albumin/Globulin Ratio 0.8L Height (Feet): 5 Height (Inches): 7.00 Weight (Pounds): 164 General Appearance: alert, confused Neck: normal alignment, supple, normal inspection Cardiovascular: normal rate, regular rhythm, no gallop/murmur, no JVD Respiratory/Chest: lungs clear, normal breath sounds, no respiratory distress, no accessory muscle use Abdomen: non tender, soft, no organomegaly, no mass Extremities: normal range of motion, non-tender, normal inspection Neurologic: forestry technician II-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 Feb 04, 2020 11:04
--- NOTE | 2020-02-04 11:38 | NUR ---
MRI THORACIC COMPLETED. MRI LUMBAR WAS COMPLETED YESTERDAY. TJB 11:39
[2020-02-04 12:00] VITALS: BP 134/87
--- NOTE | 2020-02-04 12:07 | Diagnostic Imaging Report ---
Indication: Bilateral lower 70 weakness Technique: MRI of thoracic spine performed without contrast material. Axial and sagittal images were generated. Comparison: None. Findings: Examination demonstrates alignment to be intact. There is anterior spur formation at multiple levels. Some slight increased signal intensity is noted in the endplates anteriorly at T4-5. The conus medullaris is not included on this study but was included on an MRI of the lumbar spine dated 02/03/2020. Thoracic cord appears normal. Subarachnoid space is normal. The foramina are unremarkable. Impression: Mild degenerative changes. No evidence of cord compression or abnormal cord signal.
--- NOTE | 2020-02-04 12:11 | Neurology Progress Note ---
Interim History Interim History ROS Limited/Unobtainable: No Interim History stiffness improved less tremors mri Mild spondylosis of the lumbar spine as noted above. No significant spinal canal stenosis. Neural foraminal narrowing demonstrated at L4-5 due to combination of eccentric disc and facet disease. Objective Physical Exam Last Vital Signs Date Time Temp Pulse Resp B/P (MAP) Pulse Ox O2 Delivery O2 Flow Rate FiO2 02/04/20 09:00 Room Air 02/04/20 08:00 97.3 82 20 118/69 (85) 100 Laboratory Tests Test 02/03/20 16:00 02/04/20 05:45 Troponin I 0.009 ng/mL (0.000-0.056) White Blood Count 5.7 K/UL (4.8-10.8) Red Blood Count 5.89 M/UL (4.70-6.10) Hemoglobin 12.1 G/DL (14.2-18.0) L Hematocrit 40.6 % (42.0-52.0) L Mean Corpuscular Volume 69 FL (80-99) L Mean Corpuscular Hemoglobin 20.5 PG (27.0-31.0) L Mean Corpuscular Hemoglobin Concent 29.7 G/DL (32.0-36.0) L Red Cell Distribution Width 12.5 % (11.6-14.8) Platelet Count 302 K/UL (150-450) Mean Platelet Volume 5.9 FL (6.5-10.1) L Neutrophils (%) (Auto) 64.4 % (45.0-75.0) Lymphocytes (%) (Auto) 23.7 % (20.0-45.0) Monocytes (%) (Auto) 9.4 % (1.0-10.0) Eosinophils (%) (Auto) 1.3 % (0.0-3.0) Basophils (%) (Auto) 1.3 % (0.0-2.0) Sodium Level 138 MMOL/L (136-145) Potassium Level 4.2 MMOL/L (3.5-5.1) Chloride Level 102 MMOL/L (98-107) Carbon Dioxide Level 28 MMOL/L (21-32) Anion Gap 8 mmol/L (5-15) Blood Urea Nitrogen 20 mg/dL (7-18) H Creatinine 1.1 MG/DL (0.55-1.30) Estimat Glomerular Filtration Rate > 60 mL/min (>60) Glucose Level 113 MG/DL (74-106) H Calcium Level 9.1 MG/DL (8.5-10.1) Total Bilirubin 0.3 MG/DL (0.2-1.0) Aspartate Amino Transf (AST/SGOT) 24 U/L (15-37) Alanine Aminotransferase (ALT/SGPT) 41 U/L (12-78) Alkaline Phosphatase 97 U/L (46-116) Total Protein 7.9 G/DL (6.4-8.2) Albumin 3.4 G/DL (3.4-5.0) Globulin 4.5 g/dL Albumin/Globulin Ratio 0.8 (1.0-2.7) L Head: normocophalic Neck: no rigidity Neurologic Exam Mental Status: awake, alert Speech: normal speech Objective COnfused tangential, alert Follows commands LE weakness with spasticity Impression/Recommendations Problems: (1) Hypomagnesemia (2) Hypokalemia (3) Hypocalcemia (4) Delirium (5) Microcytic anemia Status: stable Diagnostic Impression Acute encephalopathy, metabolic Hypocalcemia Tremors LE weakness IVFs Replace CA PT Ciro Fry MD Feb 04, 2020 12:10
--- NOTE | 2020-02-04 14:38 | NUR ---
NURSE NOTES: Spoke to patient's brother García, regarding patient's current status. Transferred call to patient's room successfully.
[2020-02-04] MEDS ORDERED: Tubing IV Secondary IV ONE (15:23)
--- NOTE | 2020-02-04 15:28 | NUR ---
CASE MANAGEMENT: REVIEW 02/04/20 SI: ACUTE ENCEPHALOPATHY . DELIRIUM . HYPOCALCEMIA . CONFUSION AND TREMORS 98.1 93 19 134/87 100% ROOM AIR BUN 20 IS: HEPARIN SQ BID ASA PO QD IV VENOFER QHS X5 BAGS MRI T SPINE - Mild degenerative changes. No evidence of cord compression or abnormal cord signal. \: 3E MED SURG UNIT DCP: PATIENT IS FROM HOME PLAN: PATIENT TO AMBULATE IN [facility] COMPLETED MG INFUSION
[2020-02-04 16:00] VITALS: BP 126/81
--- NOTE | 2020-02-04 16:43 | NUR ---
*-* INSURANCE *-* UPDATED CLINICAL HAVE BEEN FAXED TO: Spoke to Jumana Ferraro at risk for denial CM instructed to fax [facility]#[phone] fax#[phone]
--- NOTE | 2020-02-04 16:45 | NUR ---
NURSE NOTES: Patient up ambulating in halls, multiple times throughout shift. Gait steady, slow, without DME, instructed patient to stay close to hallway railing for safety. Up to bathroom. Will continue to monitor.
--- NOTE | 2020-02-04 19:11 | NUR ---
NURSE NOTES: Medication Discrepancy noted with change of shift Pyxis count. Ativan not documented as removed. There are 4 vials (which is the correct number of vials). In AM, patient had one time order for Ativan 0.5 mg IV x1 prior to MRI. Under patient's account on Pyxis, removed Ativan perez and went under referred medications, typed in Ativan, and removed Ativan vial x1. Administered 0.5 mg IV and checked the wasted amount with Cherry LYNCHearth science faculty member Nurse before drawing up the remainder to waste in med room RX destroyer bottle. Then kandace up remaining amount and wasted and discarded bottle in biohazard container in med room. Above discussed with Cherry MOSS (days), Cam MOSS (nights) and Rosario (Pharmacist).
--- NOTE | 2020-02-04 19:20 | NUR ---
HAND-OFF: Report given to Uriel LYNCH, patient ambulating in halls, stable.
--- NOTE | 2020-02-04 19:30 | NUR ---
NURSE NOTES: Received patient in no apparent distress. A&OX4. IV site patent and intact. Remind patient collect stool sample, patient fully understood. Bed in lowest position. Call light within reach. Will continue to monitor.
[2020-02-04 20:00] VITALS: BP 113/75
--- NOTE | 2020-02-04 20:19 | Consultation ---
History of Present Illness General Chief Complaint: General Complaint Present Illness HPI 59-year-old gentleman who is a poor historian and denies any past medical history comes to the emergency room with confusion and tremors he states for the past week. The tremors came on slowly and became progressively worse. Tremors are in every extremity of his body. Patient denies any drug use. He lives alone and cannot recall how he got to the emergency room or who called EMS. He has no pain anywhere. Denies taking any medications. Denies fevers or being in contact with anyone with COVID. This never happened before and cannot give any useful history. Allergies: Coded Allergies: No Known Allergies (Unverified , 02/02/20) Patient History Healthcare decision maker Resuscitation status Advanced Directive on File Review of Systems All Other Systems: negative except mentioned in HPI Physical Exam General Appearance: no apparent distress, alert Lines, tubes and drains: peripheral HEENT: normocephalic, atraumatic Neck: non-tender, normal alignment Respiratory/Chest: lungs clear Cardiovascular/Chest: normal peripheral pulses, normal rate, regular rhythm Abdomen: normal bowel sounds, non tender, soft Neurologic: alert, oriented x 3 Last 24 Hour Vital Signs Date Time Temp Pulse Resp B/P (MAP) Pulse Ox O2 Delivery O2 Flow Rate FiO2 02/04/20 16:00 98.6 108 20 126/81 (96) 100 02/04/20 15:34 Room Air 02/04/20 12:00 98.1 93 19 134/87 (103) 100 02/04/20 09:00 Room Air 02/04/20 08:00 97.3 82 20 118/69 (85) 100 02/04/20 04:00 98.7 59 20 126/80 (95) 98 02/04/20 00:00 98.4 60 20 140/82 (101) 98 02/03/20 21:00 Room Air Intake and Output 02/03/20 02/04/20 19:00 07:00 Intake Total 720 ml 260 ml Output Total 1200 ml 600 ml Balance -480 ml -340 ml Intake Oral 720 ml 200 ml IV Total 60 ml Output Urine Total 1200 ml 600 ml Laboratory Tests Test 02/04/20 05:45 White Blood Count 5.7 K/UL (4.8-10.8) Red Blood Count 5.89 M/UL (4.70-6.10) Hemoglobin 12.1 G/DL (14.2-18.0) L Hematocrit 40.6 % (42.0-52.0) L Mean Corpuscular Volume 69 FL (80-99) L Mean Corpuscular Hemoglobin 20.5 PG (27.0-31.0) L Mean Corpuscular Hemoglobin Concent 29.7 G/DL (32.0-36.0) L Red Cell Distribution Width 12.5 % (11.6-14.8) Platelet Count 302 K/UL (150-450) Mean Platelet Volume 5.9 FL (6.5-10.1) L Neutrophils (%) (Auto) 64.4 % (45.0-75.0) Lymphocytes (%) (Auto) 23.7 % (20.0-45.0) Monocytes (%) (Auto) 9.4 % (1.0-10.0) Eosinophils (%) (Auto) 1.3 % (0.0-3.0) Basophils (%) (Auto) 1.3 % (0.0-2.0) Sodium Level 138 MMOL/L (136-145) Potassium Level 4.2 MMOL/L (3.5-5.1) Chloride Level 102 MMOL/L (98-107) Carbon Dioxide Level 28 MMOL/L (21-32) Anion Gap 8 mmol/L (5-15) Blood Urea Nitrogen 20 mg/dL (7-18) H Creatinine 1.1 MG/DL (0.55-1.30) Estimat Glomerular Filtration Rate > 60 mL/min (>60) Glucose Level 113 MG/DL (74-106) H Calcium Level 9.1 MG/DL (8.5-10.1) Total Bilirubin 0.3 MG/DL (0.2-1.0) Aspartate Amino Transf (AST/SGOT) 24 U/L (15-37) Alanine Aminotransferase (ALT/SGPT) 41 U/L (12-78) Alkaline Phosphatase 97 U/L (46-116) Total Protein 7.9 G/DL (6.4-8.2) Albumin 3.4 G/DL (3.4-5.0) Globulin 4.5 g/dL Albumin/Globulin Ratio 0.8 (1.0-2.7) L Height (Feet): 5 Height (Inches): 7.00 Weight (Pounds): 164 Medications Current Medications Medications (Trade) Dose Ordered Sig/Amy Route PRN Reason Start Time Stop Time Status Last Admin Dose Admin Acetaminophen (Tylenol) 650 mg Q4H PRN ORAL Mild Pain (Pain Scale 1-3) 02/03/20 21:00 03/03/20 16:59 Acetaminophen (Tylenol) 650 mg Q4H PRN ORAL Temp >100.5 02/03/20 21:00 03/03/20 16:59 Aspirin (ASA) 325 mg DAILY ORAL 02/04/20 09:00 03/20/20 08:59 02/04/20 09:35 Bisacodyl (Dulcolax) 10 mg HSPRN PRN RECTAL Constipation 02/03/20 21:00 05/03/20 20:59 Dextrose (Dextrose 50%) 25 ml Q30M PRN IV Hypoglycemia 02/03/20 21:00 05/02/20 16:59 Dextrose (Dextrose 50%) 50 ml Q30M PRN IV Hypoglycemia 02/03/20 21:00 05/02/20 16:59 Heparin Sodium (Porcine) (Heparin 5000 units/ml) 5,000 units EVERY 12 HOURS SUBQ 02/03/20 21:00 03/19/20 08:59 02/04/20 09:36 Iron Sucrose 100 mg/Sodium Chloride 60 ml @ 240 mls/hr BEDTIME IV 02/03/20 21:00 02/07/20 21:14 02/03/20 21:01 Magnesium Hydroxide (Mom) 30 ml HSPRN PRN ORAL Constipation 02/03/20 21:00 03/04/20 20:59 Nitroglycerin (Ntg) 0.4 mg Q5M PRN SL Prn Chest Pain 02/03/20 20:45 03/04/20 15:59 Ondansetron HCl (Zofran) 4 mg Q6H PRN IVP Nausea & Vomiting 02/03/20 21:00 03/03/20 20:59 Quetiapine Fumarate (SEROqueL) 25 mg BEDTIME PRN ORAL For Anxiety 02/03/20 23:45 03/19/20 23:44 Assessment/Plan Diagnosis [place] I: #QUINTON #hypokalemia #hypocalcemia #LE Weakness #Tremors #Confusion #Hypokalemia #Hypomagnesemia - 1 Gram calcium gluconate given - 40mgq potassium given - Magnesium repleted - Monitor electrolytes -Monitor CBC - avoid nephrotoxins - strict I&Os - monitor UOP Hugo Ortiz M.D. Feb 04, 2020 20:19
[2020-02-04] MEDS: Iron Sucrose 100 MG in NS 55 ML IV SCH (20:27)
--- NOTE | 2020-02-04 23:18 | Psych Consult Progress Note ---
Psychiatry Progress Note Psychiatry Progress Note Subjective the pt is more lucid and able to answer the questions more clearly Medications Current Medications Medications (Trade) Dose Ordered Sig/Amy Route PRN Reason Start Time Stop Time Status Last Admin Dose Admin Acetaminophen (Tylenol) 650 mg Q4H PRN ORAL Mild Pain (Pain Scale 1-3) 02/03/20 21:00 03/03/20 16:59 Acetaminophen (Tylenol) 650 mg Q4H PRN ORAL Temp >100.5 02/03/20 21:00 03/03/20 16:59 Aspirin (ASA) 325 mg DAILY ORAL 02/04/20 09:00 03/20/20 08:59 02/04/20 09:35 Bisacodyl (Dulcolax) 10 mg HSPRN PRN RECTAL Constipation 02/03/20 21:00 05/03/20 20:59 Dextrose (Dextrose 50%) 25 ml Q30M PRN IV Hypoglycemia 02/03/20 21:00 05/02/20 16:59 Dextrose (Dextrose 50%) 50 ml Q30M PRN IV Hypoglycemia 02/03/20 21:00 05/02/20 16:59 Heparin Sodium (Porcine) (Heparin 5000 units/ml) 5,000 units EVERY 12 HOURS SUBQ 02/03/20 21:00 03/19/20 08:59 02/04/20 20:28 Iron Sucrose 100 mg/Sodium Chloride 60 ml @ 240 mls/hr BEDTIME IV 02/03/20 21:00 02/07/20 21:14 02/04/20 20:27 Magnesium Hydroxide (Mom) 30 ml HSPRN PRN ORAL Constipation 02/03/20 21:00 03/04/20 20:59 Nitroglycerin (Ntg) 0.4 mg Q5M PRN SL Prn Chest Pain 02/03/20 20:45 03/04/20 15:59 Ondansetron HCl (Zofran) 4 mg Q6H PRN IVP Nausea & Vomiting 02/03/20 21:00 03/03/20 20:59 Quetiapine Fumarate (SEROqueL) 25 mg BEDTIME PRN ORAL For Anxiety 02/03/20 23:45 03/19/20 23:44 Neurological/Psychiatric: Reports: anxiety, tremors, weakness Allergies: Coded Allergies: No Known Allergies (Unverified , 02/02/20) Objective Data Height (Feet): 5 Height (Inches): 7.00 Weight (Pounds): 164 General Appearance: WD/WN, no apparent distress, alert, alert oriented x3 Additional Comments: awake, oriented to self, place, situation, did not know the date. Mood is neutral. Affect is constricted, congruent with mood. Thought process is concrete. Thought content, no suicidal or homicidal ideation. Cognition is improving. Insight and judgment is limited. Assessment/Plan Status: stable, progressing Assessment/Plan: ASSESSMENT: Barton I Acute encephalopathy, metabolic due to electrolyte imbalance. Barton II Deferred. Barton III As above. Barton IV Low. Barton V 20. PLAN: 1. May benefit from low-dose of antipsychotics. 2. We will add Seroquel 25 mg at bedtime p.r.n. 3. Correct the underlying cause of delirium. Tara Kern MD Feb 04, 2020 23:18
[2020-02-05] VITALS (7 sets, daily range): BP systolic 117–142; BP diastolic 68–86
--- NOTE | 2020-02-05 02:51 | NUR ---
HAND-OFF: Report given to Antonia LYNCH. VS stable. Bed in lowest position. Call light within reach. Will continue to monitor.
--- NOTE | 2020-02-05 02:55 | NUR ---
NURSE NOTES: Received report from tip [email or web address]. patient is on bed, asleep. on room air. no sob. iv line on the right forearm, saline lock. bed locked and in lowest position. call light and light button within easy reach. will continue plan of care.
[2020-02-05 06:15] LABS: BASOPHILS % (AUTO) 1.5 % (0.0-2.0); EOSINOPHILS % (AUTO) 2.5 % (0.0-3.0); HEMATOCRIT 38.2 % (42.0-52.0); LYMPHOCYTES % (AUTO) 28.5 % (20.0-45.0); MEAN CORPUSCULAR VOLUME 71 FL (80-99); NEUTROPHILS % (AUTO) 56.6 % (45.0-75.0); PLATELET COUNT 272 K/UL (150-450); RED BLOOD COUNT 5.38 M/UL (4.70-6.10); RED CELL DISTRIBUTION WIDTH 13.7 % (11.6-14.8); WHITE BLOOD COUNT 4.9 K/UL (4.8-10.8)
--- NOTE | 2020-02-05 06:41 | NUR ---
NURSE HAND-OFF: Important Events on Shift:none Patient Status: stable Diet:regular Pending Orders: none Pending Results/Labs:pending labs Pending MD notification:none Latest Vital Signs: Temperature 98.5 , Pulse 67 , B/P 128 /79 , Respiratory Rate 20 , O2 SAT 97 , Room Air, O2 Flow Rate . Vital Sign Comment: Latest Quach Fall Score: 20 Fall Risk: Low Risk Safety Measures: Call light Within Reach, Bed Alarm Zone 1, Side Rails Side Rails x2, Bed position Low and Locked. Fall Precautions: [place] Sockjaleel Patient Fall Education Addendum: 02/05/20 at 0729 by Lesli Rapp RN report given to tip tobin
[2020-02-05 06:42] LABS: ALANINE AMINOTRANSFERASE 41 U/L (12-78); ALBUMIN/GLOBULIN RATIO 0.7 (1.0-2.7); ALKALINE PHOSPHATASE 88 U/L (46-116); ANION GAP 7 mmol/L (5-15); ASPARTATE AMINO TRANSFERASE 23 U/L (15-37); BILIRUBIN,TOTAL 0.3 MG/DL (0.2-1.0); BLOOD UREA NITROGEN 24 mg/dL (7-18); CALCIUM 8.9 MG/DL (8.5-10.1); CARBON DIOXIDE 28 MMOL/L (21-32); CHLORIDE 104 MMOL/L (98-107); CREATININE 1.3 MG/DL (0.55-1.30); POTASSIUM 4.1 MMOL/L (3.5-5.1); SODIUM 139 MMOL/L (136-145)
--- NOTE | 2020-02-05 07:28 | NUR ---
NURSE NOTES: Report received from Antonia LYNCH, rounds made. Patient AOx4, calm on RA, dangling at bedside, getting ready to eat breakfast, no NV. RFA IV heplock intact, site asymptomatic. Call light in reach, bed in lowest position, will continue to monitor. Addendum: 02/05/20 at 0844 by Shoshana Andrade RN Urinal at bedside.
--- NOTE | 2020-02-05 07:35 | NUR ---
NURSE NOTES: Patient found sitting upright on the floor, against the wall, next to toilet. Patient alert oriented x4, calm. No distress, respirations even/unlabored. Patient states, "I got up to use the bathroom and had a peed before I made it to the toilet, I slipped on my wet sock and landed on my butt." Patient denies dizziness or hitting his head. Denies pain. Will notify MD. Patient moved from room 314-2 to 301-2 (close to nurses station). Oriented patient to room and call light, verbalized understanding. Will continue to monitor. Addendum: 02/05/20 at 0843 by Shoshana Andrade RN Urinal at bedside. Addendum: 02/05/20 at 0845 by Shoshana Andrade RN All belongings moved with patient to room 301-2. Addendum: 02/05/20 at 0938 by Shoshana Andrade RN Dr. Arroyo notified of above episode at bedside rounds. Addendum: 02/05/20 at 1646 by Shoshana Andrade RN Skin checked (hands, arms, elbows, back, lower back, buttocks, hips, knees, legs) no bruising or skin impairment noted.
--- NOTE | 2020-02-05 08:35 | Neurology Progress Note ---
Interim History Interim History ROS Limited/Unobtainable: No Interim History stiffness improved less tremors 5/5 now mri Mild spondylosis of the lumbar spine as noted above. No significant spinal canal stenosis. Neural foraminal narrowing demonstrated at L4-5 due to combination of eccentric disc and facet disease. Objective Physical Exam Last Vital Signs Date Time Temp Pulse Resp B/P (MAP) Pulse Ox O2 Delivery O2 Flow Rate FiO2 02/05/20 08:00 98.1 65 18 124/68 (86) 97 02/04/20 21:00 Room Air Laboratory Tests Test 02/05/20 05:40 White Blood Count 4.9 K/UL (4.8-10.8) Red Blood Count 5.38 M/UL (4.70-6.10) Hemoglobin 11.0 G/DL (14.2-18.0) L Hematocrit 38.2 % (42.0-52.0) L Mean Corpuscular Volume 71 FL (80-99) L Mean Corpuscular Hemoglobin 20.5 PG (27.0-31.0) L Mean Corpuscular Hemoglobin Concent 28.9 G/DL (32.0-36.0) L Red Cell Distribution Width 13.7 % (11.6-14.8) Platelet Count 272 K/UL (150-450) Mean Platelet Volume 5.7 FL (6.5-10.1) L Neutrophils (%) (Auto) 56.6 % (45.0-75.0) Lymphocytes (%) (Auto) 28.5 % (20.0-45.0) Monocytes (%) (Auto) 11.0 % (1.0-10.0) H Eosinophils (%) (Auto) 2.5 % (0.0-3.0) Basophils (%) (Auto) 1.5 % (0.0-2.0) Sodium Level 139 MMOL/L (136-145) Potassium Level 4.1 MMOL/L (3.5-5.1) Chloride Level 104 MMOL/L (98-107) Carbon Dioxide Level 28 MMOL/L (21-32) Anion Gap 7 mmol/L (5-15) Blood Urea Nitrogen 24 mg/dL (7-18) H Creatinine 1.3 MG/DL (0.55-1.30) Estimat Glomerular Filtration Rate 56.5 mL/min (>60) Glucose Level 99 MG/DL (74-106) Calcium Level 8.9 MG/DL (8.5-10.1) Total Bilirubin 0.3 MG/DL (0.2-1.0) Aspartate Amino Transf (AST/SGOT) 23 U/L (15-37) Alanine Aminotransferase (ALT/SGPT) 41 U/L (12-78) Alkaline Phosphatase 88 U/L (46-116) Total Protein 7.2 G/DL (6.4-8.2) Albumin 3.0 G/DL (3.4-5.0) L Globulin 4.2 g/dL Albumin/Globulin Ratio 0.7 (1.0-2.7) L Head: normocophalic Neck: no rigidity Neurologic Exam Mental Status: awake, alert Speech: normal speech Objective COnfused tangential, alert Follows commands LE weakness with spasticity Impression/Recommendations Problems: (1) Hypomagnesemia (2) Hypokalemia (3) Hypocalcemia (4) Delirium (5) Microcytic anemia Status: stable, progressing Diagnostic Impression Acute encephalopathy, metabolic Hypocalcemia Tremors LE weakness IVFs Replace CA PT Ciro Fry MD Feb 05, 2020 08:35
[2020-02-05] MEDS: Heparin 5000 units/ml inj SUBQ SCH ×2 (09:00→22:03)
[2020-02-05] MEDS ORDERED: SEROQUEL25 MG ORAL (09:48)
[2020-02-05] MEDS ORDERED: ULTRA-LIGHT RO1 EACH MC (09:49)
--- NOTE | 2020-02-05 09:54 | Discharge Instructions ---
Discharge Instructions Discharge Instructions Call MD/Return to Hospital if: retuen if you have chest pain, shortness of breath or fall Diet: cardiac 2 GM Na, low fat Activity: light activity, ambulate w/ assist only, up w/ walker For Congestive Heart Failure Reminder Report to your physician any weight gain of 5 pounds or more in one week. Fermin Arroyo M.D. Feb 05, 2020 09:54
--- NOTE | 2020-02-05 14:16 | NUR ---
CASE MANAGEMENT: REVIEW 02/05/20 SI: ACUTE ENCEPHALOPATHY . DELIRIUM . HYPOCALCEMIA . CONFUSION AND TREMORS 98.1 65 18 124/68 97% ROOM AIR BUN 24 ALB 3.0 IS: HEPARIN SQ BID ASA PO QD IV VENOFER QHS X5 BAGS \: 3E MED SURG UNIT DCP: PATIENT IS FROM HOME PLAN: PLACEMENT PONCE
--- NOTE | 2020-02-05 14:26 | NUR ---
*-* INSURANCE *-* UPDATED CLINICAL HAVE BEEN FAXED TO: [facility]#[phone] fax#[phone]
--- NOTE | 2020-02-05 14:34 | Nephrology Progress Note ---
Assessment/Plan Plan #QUINTON #hypokalemia #hypocalcemia #LE Weakness #Tremors #Confusion #Hypokalemia #Hypomagnesemia - 1 Gram calcium gluconate given - 40mgq potassium given - Magnesium repleted - Monitor electrolytes -Monitor CBC - avoid nephrotoxins - strict I&Os - monitor UOP Subjective ROS Limited/Unobtainable: No Constitutional: Reports: malaise, weakness HEENT: Denies: no symptoms, eye pain, blurred vision, tearing, double vision, ear pain, ear discharge, nose pain, nose congestion, throat pain, throat swelling, mouth pain, mouth swelling, other Genitourinary: Denies: no symptoms, burning, discharge, frequency, flank pain, hematuria, incontinence, pain, urgency, other Neurologic/Psychiatric: Denies: no symptoms, anxiety, depressed, emotional problems, headache, numbness, paresthesia, pre-existing deficit, seizure, tingling, tremors, weakness, other Subjective ambulated earlier today no complaints Objective Objective Last 24 Hour Vital Signs Date Time Temp Pulse Resp B/P (MAP) Pulse Ox O2 Delivery O2 Flow Rate FiO2 02/05/20 12:00 98.0 61 20 117/84 (95) 97 02/05/20 08:00 98.1 65 18 124/68 (86) 97 02/05/20 04:00 98.5 67 20 128/79 (95) 97 02/05/20 00:00 98.4 69 20 138/86 (103) 99 02/04/20 21:00 Room Air 02/04/20 20:00 98.5 69 20 113/75 (88) 98 02/04/20 16:00 98.6 108 20 126/81 (96) 100 02/04/20 15:34 Room Air Intake and Output 02/04/20 02/05/20 19:00 07:00 Intake Total 948 ml 360 ml Balance 948 ml 360 ml Intake Oral 948 ml 300 ml IV Total 60 ml # Voids 3 # Bowel Movements 2 Laboratory Tests 02/05/20 05:40: White Blood Count 4.9, Red Blood Count 5.38, Hemoglobin 11.0L, Hematocrit 38.2L , Mean Corpuscular Volume 71L, Mean Corpuscular Hemoglobin 20.5L, Mean Corpuscular Hemoglobin Concent 28.9L, Red Cell Distribution Width 13.7, Platelet Count 272, Mean Platelet Volume 5.7L, Neutrophils (%) (Auto) 56.6, Lymphocytes (%) (Auto) 28.5, Monocytes (%) (Auto) 11.0H, Eosinophils (%) (Auto) 2.5, Basophils (%) (Auto) 1.5, Sodium Level 139, Potassium Level 4.1, Chloride Level 104, Carbon Dioxide Level 28, Anion Gap 7, Blood Urea Nitrogen 24H, Creatinine 1.3, Estimat Glomerular Filtration Rate 56.5, Glucose Level 99, Calcium Level 8.9, Total Bilirubin 0.3, Aspartate Amino Transf (AST/SGOT) 23, Alanine Aminotransferase (ALT/SGPT) 41, Alkaline Phosphatase 88, Total Protein 7.2, Albumin 3.0L, Globulin 4.2, Albumin/Globulin Ratio 0.7L Height (Feet): 5 Height (Inches): 7.00 Weight (Pounds): 164 General Appearance: no apparent distress, alert EENT: PERRL/EOMI Neck: non-tender, normal alignment Cardiovascular: normal peripheral pulses, normal rate, regular rhythm Respiratory/Chest: chest wall non-tender, lungs clear Abdomen: non tender, soft Neurologic: alert, oriented x 3 Hugo Ortiz M.D. Feb 05, 2020 14:34
--- NOTE | 2020-02-05 14:41 | NUR ---
Discharge planning: Patient to transfer to [place] t: [phone] f:[phone] Jumana from [facility] to reach out to facility to give TOMASZ CM to communicate with facility CM called twice but no answer from Emon in admissions
--- NOTE | 2020-02-05 15:05 | Discharge Summary ---
Discharge Summary Hospital Course Date of Admission Feb 02, 2020 at 13:10 Date of Discharge 02/05/2020 Admitting Diagnosis hypocalcemia HPI 59-year-old gentleman who is a poor historian and denies any past medical history comes to the emergency room with confusion and tremors he states for the past week. The tremors came on slowly and became progressively worse. Tremors are in every extremity of his body. Patient denies any drug use. He lives alone and cannot recall how he got to the emergency room or who called EMS. He has no pain anywhere. Denies taking any medications. Denies fevers or being in contact with anyone with COVID. This never happened before and cannot give any useful history. [facility] 59-year-old gentleman with no significant past medical history presents to the emergency room with confusion and tremors for 1 week. He was encephalopathic likely from the hypocalcemia of 6.2 corrected for albumin. As his calcium normalized his encephalopathy improved. He was seen by neurology which preformed MRI of his Spine which was unremarkable. He was evaluated by phycology and was found to be severely anxious and was started on Seroquel at bedtime. He will go to SNF for PT since he is unsteady on his feet. He should continue Venofer 100mg for 2 more days for his microcytic anemia and will follow out patient for coloscopy. #Hypocalcemia 0 corrected at 6.2 ionized 1.07-unknown etiology - improving #Tremors - improving #Confusion #Hypokalemia -improving #Hypomagnesemia - improving - 1 Gram calcium gluconate given - 40mgq potassium given - Magnesium replete - Check PTH and Vit D - Monitor electrolytes - CT hea dunremarkable - Consult to nephrology appreciate recs - Consult to neurology appreciate recs -MRI of spine and brain -Consult to psychology - now on Seroquel at bedtime #Microcytic anemia -Iron studies show iron deficiency -Starting Venofer 100mg for 5 days -FOBT negative -Monitor CBC Heparin subq 5000 BID PT evaluation Regular diet I spent 40 min on this patient with 20 min face o face. I coordinated with RNs and consultants. I did a literature review on hypocalcemia. Discharge Medications New Medications: Walker (Ultra-Light Rollator) 1 Each Each EACH MC, #1 Quetiapine Fumarate* (Seroquel*) 25 Mg Tablet 25 MG ORAL BEDTIME PRN for 30 Days, #30 TAB Discharge Condition Upon Discharge: improving, stable Discharge Vital Signs Last Vital Signs Date Time Temp Pulse Resp B/P (MAP) Pulse Ox O2 Delivery O2 Flow Rate FiO2 02/05/20 12:00 98.0 61 20 117/84 (95) 97 02/05/20 09:00 Room Air Discharge Disposition Patient was discharged to [place] Discharge Diagnoses: (1) Hypocalcemia (2) Delirium (3) Hypomagnesemia (4) Hypokalemia (5) Microcytic anemia Discharge Instructions Discharge Instructions Call MD/Return to Hospital if: retuen if you have chest pain, shortness of breath or fall Activity: light activity, ambulate w/ assist only, up w/ walker Fermin Arroyo M.D. Feb 05, 2020 15:05
--- NOTE | 2020-02-05 18:02 | NUR ---
NURSE NOTES: Spoke to patient's brother, García. Updated on patient current status and fall incident that occurred this AM. Call then transferred to patient's room, successfully.
--- NOTE | 2020-02-05 19:35 | NUR ---
NURSE HAND-OFF: Important Events on Shift:Fall in bathroom at 0735 in room 314 Patient Status: stable Diet: regular Pending Orders: CM placement at ECF/SNF for PT Pending Results/Labs: None Pending MD notification:none Latest Vital Signs: Temperature 98.9 , Pulse 62 , B/P 135 /77 , Respiratory Rate 19 , O2 SAT 98 , Room Air, O2 Flow Rate . Vital Sign Comment: none Latest Quach Fall Score: 70 Fall Risk: High Risk Safety Measures: Call light Within Reach, Bed Alarm Zone 1, Side Rails Side Rails x2, Bed position Low and Locked. Fall Precautions: Yellow Socks Patient Fall Education Report given to Lula LYNCH.
--- NOTE | 2020-02-05 19:35 | NUR ---
NURSE HAND-OFF: Important Events on Shift:Fall in bathroom at 0735 in room 314 Patient Status: Diet: Pending Orders: Pending Results/Labs: Pending MD notification: Latest Vital Signs: Temperature 98.0 , Pulse 57 , B/P 142 /76 , Respiratory Rate 18 , O2 SAT 98 , Room Air, O2 Flow Rate . Vital Sign Comment: Latest Quach Fall Score: 70 Fall Risk: High Risk Safety Measures: Call light Within Reach, Bed Alarm Zone 1, Side Rails Side Rails x2, Bed position Low and Locked. Fall Precautions: Yellow Socks Patient Fall Education Report given to .
--- NOTE | 2020-02-05 19:36 | NUR ---
NURSE NOTES: Received report from Shoshana LYNCH. Rounding is done. Patient is z/o x4 and denied any pain at this time. No any distress noted at this time. IV site is intact and patent. Shoshana stated that patient fell in the morning and keep checking patient's condition frequently. Patient is stable condition. Bed is on alarm, locked, and lowest position. Educated regarding safety measures. Call light within reach. Will continue to monitor.
[2020-02-05] MEDS: Iron Sucrose 100 MG in NS 55 ML IV SCH (22:34)
--- NOTE | 2020-02-05 23:31 | Psych Consult Progress Note ---
Psychiatry Progress Note Psychiatry Progress Note Subjective the pt is more lucid and able to answer the questions more clearly complained o anxiety cognition improved slept well Medications Current Medications Medications (Trade) Dose Ordered Sig/Amy Route PRN Reason Start Time Stop Time Status Last Admin Dose Admin Acetaminophen (Tylenol) 650 mg Q4H PRN ORAL Mild Pain (Pain Scale 1-3) 02/03/20 21:00 03/03/20 16:59 Acetaminophen (Tylenol) 650 mg Q4H PRN ORAL Temp >100.5 02/03/20 21:00 03/03/20 16:59 Aspirin (ASA) 325 mg DAILY ORAL 02/04/20 09:00 03/20/20 08:59 02/05/20 09:00 Bisacodyl (Dulcolax) 10 mg HSPRN PRN RECTAL Constipation 02/03/20 21:00 05/03/20 20:59 Dextrose (Dextrose 50%) 25 ml Q30M PRN IV Hypoglycemia 02/03/20 21:00 05/02/20 16:59 Dextrose (Dextrose 50%) 50 ml Q30M PRN IV Hypoglycemia 02/03/20 21:00 05/02/20 16:59 Heparin Sodium (Porcine) (Heparin 5000 units/ml) 5,000 units EVERY 12 HOURS SUBQ 02/03/20 21:00 03/19/20 08:59 02/05/20 22:03 Iron Sucrose 100 mg/Sodium Chloride 60 ml @ 240 mls/hr BEDTIME IV 02/03/20 21:00 02/07/20 21:14 02/05/20 22:34 Magnesium Hydroxide (Mom) 30 ml HSPRN PRN ORAL Constipation 02/03/20 21:00 03/04/20 20:59 Nitroglycerin (Ntg) 0.4 mg Q5M PRN SL Prn Chest Pain 02/03/20 20:45 03/04/20 15:59 Ondansetron HCl (Zofran) 4 mg Q6H PRN IVP Nausea & Vomiting 02/03/20 21:00 03/03/20 20:59 Quetiapine Fumarate (SEROqueL) 25 mg BEDTIME PRN ORAL For Anxiety 02/03/20 23:45 03/19/20 23:44 Neurological/Psychiatric: Denies: no symptoms, anxiety, depressed, emotional problems, headache, numbness, paresthesia, pre-existing deficit, seizure, tingling, tremors, weakness, other Allergies: Coded Allergies: No Known Allergies (Unverified , 02/02/20) Objective Data Height (Feet): 5 Height (Inches): 7.00 Weight (Pounds): 164 Additional Comments: awake, oriented to self, place, situation, did not know the date. Mood is neutral. Affect is constricted, congruent with mood. Thought process is concrete. Thought content, no suicidal or homicidal ideation. Cognition is improving. Insight and judgment is limited. Assessment/Plan [place] I: ASSESSMENT: [place] I Acute encephalopathy, metabolic due to electrolyte imbalance. [place] II Deferred. [place] III As above. [place] IV Low. [place] V 20. PLAN: 1. May benefit from low-dose of antipsychotics. 2. We will add Seroquel 25 mg at bedtime p.r.n. 3. Correct the underlying cause of delirium. Status: stable, progressing Status Narrative ASSESSMENT: [place] I Acute encephalopathy, metabolic due to electrolyte imbalance. [place] II Deferred. [place] III As above. [place] IV Low. [place] V 20. PLAN: 1. May benefit from low-dose of antipsychotics. 2. We will add Seroquel 25 mg at bedtime p.r.n. 3. Correct the underlying cause of delirium. Assessment/Plan: ASSESSMENT: [place] I Acute encephalopathy, metabolic due to electrolyte imbalance. [place] II Deferred. [place] III As above. [place] IV Low. [place] V 20. PLAN: 1. May benefit from low-dose of antipsychotics. 2. We will add Seroquel 25 mg at bedtime p.r.n. 3. Correct the underlying cause of delirium. Tara Kern MD Feb 05, 2020 23:31
[2020-02-06] VITALS (7 sets, daily range): BP systolic 103–137; BP diastolic 61–89
--- NOTE | 2020-02-06 07:25 | NUR ---
HAND-OFF: Report given to Kassie LYNCH. Patient in stable condition.
--- NOTE | 2020-02-06 08:05 | NUR ---
NURSE NOTES: Received report from Kenan RN , rounds made , pt is awake having breakfast, a/ox4, breaths regular unlabored on RA no s/s of distress , pt reminded to call for help when he wants to Get up, pt has a RT FA 22G locked , bed in low locked position , with alarm, side rails upX2 call light with in reach will continue to Monitor
[2020-02-06] MEDS: Heparin 5000 units/ml inj SUBQ SCH ×2 (08:22→21:04)
--- NOTE | 2020-02-06 10:14 | NUR ---
*-*DISCHARGE PLANNING*-* ON 02/05/2020 PATIENT HAS BEEN REFERRED TO: [facility] P: [phone]
--- NOTE | 2020-02-06 10:34 | NUR ---
*-*DISCHARGE PLANNING*-* ON 02/05/2020 PATIENT HAS BEEN REFERRED TO: [facility] P: [phone] S/W CELIA, STATED WAITING FOR APPROVAL FROM [employer] AND AUTH FROM [employer].
--- NOTE | 2020-02-06 14:23 | Nephrology Progress Note ---
Assessment/Plan Plan #QUINTON #hypokalemia #hypocalcemia #LE Weakness #Tremors #Confusion #Hypokalemia #Hypomagnesemia - Magnesium repleted - Monitor electrolytes -Monitor CBC - avoid nephrotoxins - strict I&Os - monitor UOP Subjective ROS Limited/Unobtainable: No Constitutional: Reports: malaise, weakness HEENT: Denies: no symptoms, eye pain, blurred vision, tearing, double vision, ear pain, ear discharge, nose pain, nose congestion, throat pain, throat swelling, mouth pain, mouth swelling, other Genitourinary: Denies: no symptoms, burning, discharge, frequency, flank pain, hematuria, incontinence, pain, urgency, other Neurologic/Psychiatric: Denies: no symptoms, anxiety, depressed, emotional problems, headache, numbness, paresthesia, pre-existing deficit, seizure, tingling, tremors, weakness, other Subjective ambulated earlier today no complaints Objective Objective Last 24 Hour Vital Signs Date Time Temp Pulse Resp B/P (MAP) Pulse Ox O2 Delivery O2 Flow Rate FiO2 02/06/20 12:00 98.9 55 18 127/75 (92) 97 02/06/20 09:00 Room Air 02/06/20 08:00 98.0 73 18 118/72 (87) 97 02/06/20 04:00 98.4 57 19 137/89 (105) 97 19 02/06/20 00:00 98.0 60 18 128/74 (92) 95 02/05/20 21:00 Room Air 02/05/20 20:00 98.9 62 19 135/77 (96) 98 02/05/20 16:00 98.0 57 18 142/76 (98) 98 02/05/20 15:37 98.1 97 Room Air Intake and Output 02/05/20 02/06/20 19:00 07:00 Intake Total 1000 ml 260 ml Output Total 1325 ml 600 ml Balance -325 ml -340 ml Intake Oral 1000 ml 200 ml IV Total 60 ml Output Urine Total 1325 ml 600 ml # Voids 3 Height (Feet): 5 Height (Inches): 7.00 Weight (Pounds): 164 Hugo Ortiz M.D. Feb 06, 2020 14:23
--- NOTE | 2020-02-06 14:45 | NUR ---
*-*DISCHARGE PLANNING*-* PATIENT HAS BEEN REFERRED TO: [facility] P: [phone] [facility] P: [phone] [facility] P: [phone] [facility] P: [phone] [place] [facility] P: [phone] [facility] P: [phone] [facility] P: [phone] [facility] P: [phone] [facility] P: [phone] [facility] P: [phone] [facility] P: [phone] Addendum: 02/06/20 at 1709 by YUKO SINGLETON CM *-*DISCHARGE PLANNING*-* PATIENT HAS BEEN REFERRED TO: [facility] P: [phone] S/W POOJA, ABLE TO ACCEPT, NEED TOMASZ FROM INSURANCE, FOLLOW UP SATURDAY [facility] P: [phone] S/W MICHEL, ADMISSIONS NOT AVAILABLE OVER THE WEEKEND [facility] P: [phone] S/[address] [place], ADMISSION NOT AVAILABLE YET [facility] P: [phone] S/W ANGELICA, CALL BACK ON SATURDAY [facility] [place] P: [phone] S/W DRU, WILL CALL BACK AFTER CLINICALS REVIEWED ON SATURDAY [facility] P: [phone] S/W REYES, FOLLOW UP ON SATURDAY [facility] P: [phone] S/W TERENCE, CANNOT REVIEW CLINICALS TILL SATURDAY [facility] P: [phone] NO ANSWER, CALL BACK SATURDAY [facility] P: [phone] S/W ASAD, WILL CALL BACK AFTER REVIEW ON SATURDAY [facility] P: [phone] NO ANSWER [facility] P: [phone] S/W ALIX, FOLLOW UP SATURDAY, WHEN ADMISSIONS AVAILABLE.
--- NOTE | 2020-02-06 15:23 | General Progress Note ---
Assessment/Plan Problem List: (1) Hypocalcemia ICD Codes: E83.51 - Hypocalcemia SNOMED: 5558602 (2) Delirium ICD Codes: R41.0 - Disorientation, unspecified SNOMED: 9826347 (3) Hypokalemia ICD Codes: E87.6 - Hypokalemia SNOMED: 78293307 (4) Hypomagnesemia ICD Codes: E83.42 - Hypomagnesemia SNOMED: 850915600 (5) Microcytic anemia ICD Codes: D50.9 - Iron deficiency anemia, unspecified SNOMED: 041144239 Status: stable, progressing Assessment/Plan: 59-year-old gentleman with no significant past medical history presents to the emergency room with confusion and tremors for 1 week. He was encephalopathic likely from the hypocalcemia of 6.2 corrected for albumin. As his calcium normalized his encephalopathy improved. He was seen by neurology which preformed MRI of his Spine which was unremarkable. He was evaluated by phycology and was found to be severely anxious and was started on Seroquel at bedtime. He will go to SNF for PT since he is unsteady on his feet. He should continue Venofer 100mg for 2 more days for his microcytic anemia and will follow out patient for coloscopy. SNF DC held for waxing and waning mental cognition. #Hypocalcemia 0 corrected at 6.2 ionized 1.07-unknown etiology - improving #Tremors - improving #Confusion #Hypokalemia -improving #Hypomagnesemia - improving - 1 Gram calcium gluconate given - 40mgq potassium given - Magnesium replete - Check PTH and Vit D - Monitor electrolytes - CT head unremarkable - Consult to nephrology appreciate recs - Consult to neurology appreciate recs -MRI of spine and brain -Consult to psychology - now on Seroquel at bedtime #Microcytic anemia -Iron studies show iron deficiency -Venofer 100mg for 2 more days -FOBT negative -Monitor CBC Heparin subq 5000 BID PT evaluation Regular diet I spent 38 min on this patient with 20 min face to face. I coordinated with RNs and consultants. I spoke with family on the phone. Subjective Date patient seen: Feb 06, 2020 Time patient seen: 09:00 ROS Limited/Unobtainable: No Constitutional: Reports: no symptoms HEENT: Reports: no symptoms Cardiovascular: Reports: no symptoms Respiratory: Reports: no symptoms Gastrointestinal/Abdominal: Reports: no symptoms Neurologic/Psychiatric: Reports: anxiety Endocrine: Reports: no symptoms Hematologic/Lymphatic: Reports: no symptoms Allergies: Coded Allergies: No Known Allergies (Unverified , 02/02/20) Subjective Patient is more talkative now but cognition wax an wanes Objective Last 24 Hour Vital Signs Date Time Temp Pulse Resp B/P (MAP) Pulse Ox O2 Delivery O2 Flow Rate FiO2 02/06/20 12:00 98.9 55 18 127/75 (92) 97 02/06/20 09:00 Room Air 02/06/20 08:00 98.0 73 18 118/72 (87) 97 02/06/20 04:00 98.4 57 19 137/89 (105) 97 19 02/06/20 00:00 98.0 60 18 128/74 (92) 95 02/05/20 21:00 Room Air 02/05/20 20:00 98.9 62 19 135/77 (96) 98 02/05/20 16:00 98.0 57 18 142/76 (98) 98 02/05/20 15:37 98.1 97 Room Air Intake and Output 02/05/20 02/06/20 19:00 07:00 Intake Total 1000 ml 260 ml Output Total 1325 ml 600 ml Balance -325 ml -340 ml Intake Oral 1000 ml 200 ml IV Total 60 ml Output Urine Total 1325 ml 600 ml # Voids 3 Height (Feet): 5 Height (Inches): 7.00 Weight (Pounds): 164 General Appearance: no apparent distress, alert, alert oriented x3 EENT: normal ENT inspection, TMs normal Neck: non-tender, normal alignment, supple Cardiovascular: normal peripheral pulses, normal rate, regular rhythm, no gallop/murmur, no JVD Respiratory/Chest: chest wall non-tender, lungs clear, normal breath sounds, no respiratory distress Abdomen: non tender, soft, no organomegaly, no mass Extremities: normal range of motion, non-tender, normal inspection Edema: no edema noted Arm (L), no edema noted Arm (R), no edema noted Leg (L), no edema noted Leg (R), no edema noted Pedal (L), no edema noted Pedal (R), no edema noted 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 Feb 06, 2020 15:23
--- NOTE | 2020-02-06 16:11 | Neurology Progress Note ---
Interim History Interim History ROS Limited/Unobtainable: No Interim History minimal tremors today LE 5/5 Objective Physical Exam Last Vital Signs Date Time Temp Pulse Resp B/P (MAP) Pulse Ox O2 Delivery O2 Flow Rate FiO2 02/06/20 15:37 98.1 97 Room Air 02/06/20 12:00 55 18 127/75 (92) Head: normocophalic Neck: no rigidity Neurologic Exam Mental Status: awake, alert Speech: normal speech Objective COnfused tangential, alert Follows commands LE weakness with spasticity Impression/Recommendations Problems: (1) Hypomagnesemia (2) Hypokalemia (3) Hypocalcemia (4) Delirium (5) Microcytic anemia Status: stable, progressing Diagnostic Impression Acute encephalopathy, metabolic Hypocalcemia Tremors LE weakness IVFs Replace CA PT Ciro Fry MD Feb 06, 2020 16:11
--- NOTE | 2020-02-06 19:15 | NUR ---
NURSE NOTES: Receive a report from CRIS Garcia. Round is done. Pt is awake and alert. No acute distress noted. Denies any pain. Verbalizes his own needs. Provide fall precautions. On bed alarm. Call light within reach. Will continue to monitor.
--- NOTE | 2020-02-06 19:31 | NUR ---
HAND-OFF: Report given to John RN, pt stable
--- NOTE | 2020-02-06 20:30 | NUR ---
NURSE NOTES: No cramping or tingling sensation. Noted feet drops but motors are 4/5 bilateral. Encourage to PROM and isotonic exercise at bed. Will continue to monitor.
[2020-02-06] MEDS: Iron Sucrose 100 MG in NS 55 ML IV SCH (21:06)
[2020-02-07] VITALS: BP 131/76
[2020-02-07 04:30] VITALS: BP 126/66
--- NOTE | 2020-02-07 06:00 | NUR ---
NURSE NOTES: Denies any pain. No acute distress noted. Noted involuntary movements in extremities alternately overnight. Pt states that he feels them sometimes. No cramping/tingling sense noted. Will continue to monitor and endorse to AM shift to follow up with MD.
--- NOTE | 2020-02-07 07:33 | NUR ---
NURSE HAND-OFF: Important Events on Shift: involuntary movement in extremities. Patient Status: [stable] Diet: [regular diet] Pending Orders: [na] Pending Results/Labs:[completed] Pending MD notification:[endorse to AM shift for pt's movements] Latest Vital Signs: Temperature 98.5 , Pulse 53 , B/P 126 /66 , Respiratory Rate 18 , O2 SAT 96 , Room Air, O2 Flow Rate . Vital Sign Comment: [stable] Latest Quach Fall Score: 45 Fall Risk: High Risk Safety Measures: Call light Within Reach, Bed Alarm Zone 1, Side Rails Side Rails x2, Bed position Low and Locked. Fall Precautions: Yellow Socks Yellow Gown Door Sign Patient Fall Education Report given to [CRIS Fernando]. Round is done.
--- NOTE | 2020-02-07 07:49 | NUR ---
NURSE NOTES: Received report from o RN , rounds made , pt sleeping with intermittent tremors most noted on the left side both left arm and left leg , breaths regular unlabored on RA no s/s of distress, pt has a left hand 22G locked , bed in low locked position , with alarm, side rails upX2 call light with in reach will continue to Monitor
[2020-02-07 08:00] VITALS: BP 114/67
[2020-02-07 08:21] LABS: ANION GAP 9 mmol/L (5-15); BLOOD UREA NITROGEN 20 mg/dL (7-18); CALCIUM 8.1 MG/DL (8.5-10.1); CARBON DIOXIDE 27 MMOL/L (21-32); CHLORIDE 104 MMOL/L (98-107); CREATININE 1.1 MG/DL (0.55-1.30); PHOSPHORUS 3.5 MG/DL (2.5-4.9); POTASSIUM 4.1 MMOL/L (3.5-5.1); SODIUM 139 MMOL/L (136-145)
[2020-02-07] MEDS ORDERED: NS 275ml ONE (08:31)
[2020-02-07] MEDS ORDERED: Tubing IV Secondary IV ONE (08:31)
[2020-02-07] MEDS: Heparin 5000 units/ml inj SUBQ SCH ×2 (08:54→20:42)
--- NOTE | 2020-02-07 10:05 | General Progress Note ---
Assessment/Plan Problem List: (1) Hypocalcemia ICD Codes: E83.51 - Hypocalcemia SNOMED: 1700412 (2) Delirium ICD Codes: R41.0 - Disorientation, unspecified SNOMED: 6797646 (3) Hypokalemia ICD Codes: E87.6 - Hypokalemia SNOMED: 40534588 (4) Hypomagnesemia ICD Codes: E83.42 - Hypomagnesemia SNOMED: 332164511 (5) Microcytic anemia ICD Codes: D50.9 - Iron deficiency anemia, unspecified SNOMED: 313218227 Status: stable, progressing Assessment/Plan: 59-year-old gentleman with no significant past medical history presents to the emergency room with confusion and tremors for 1 week. He was encephalopathic likely from the hypocalcemia of 6.2 corrected for albumin. As his calcium normalized his encephalopathy improved. He was seen by neurology which preformed MRI of his Spine which was unremarkable. He was evaluated by phycology and was found to be severely anxious and was started on Seroquel at bedtime. He will go to SNF for PT since he is unsteady on his feet. He should continue Venofer 100mg for 2 more days for his microcytic anemia and will follow out patient for coloscopy. SNF DC held for waxing and waning mental cognition. #Hypocalcemia 0 corrected at 6.2 ionized 1.07-unknown etiology - improving #Tremors - improving #Confusion #Hypokalemia -improving #Hypomagnesemia - improving - 1 Gram calcium gluconate given - Added Calcium carbonate (Tums) TID - 40mgq potassium given - Magnesium replete - Check PTH and Vit D - Monitor electrolytes -A dded multivitamin - CT head unremarkable - Consult to nephrology appreciate recs - Consult to neurology appreciate recs -MRI of spine and brain -C onsult to psychology - now on Seroquel at bedtime #Microcytic anemia - Iron studies show iron deficiency - Venofer 100mg for 0 more days - FOBT negative - Monitor CBC Heparin subq 5000 BID PT evaluation Regular diet DC to SNF for PT on Wednesday 02/07 I spent 38 min on this patient with 20 min face to face. I coordinated with RNs and consultants. I spoke with family on the phone. Subjective Date patient seen: Feb 07, 2020 Time patient seen: 07:30 ROS Limited/Unobtainable: No Constitutional: Reports: no symptoms HEENT: Reports: no symptoms Cardiovascular: Reports: no symptoms Respiratory: Reports: no symptoms Gastrointestinal/Abdominal: Reports: no symptoms Genitourinary: Reports: no symptoms Neurologic/Psychiatric: Reports: anxiety, tremors Endocrine: Reports: no symptoms Hematologic/Lymphatic: Reports: no symptoms Allergies: Coded Allergies: No Known Allergies (Unverified , 02/02/20) Subjective Patient is more leucid today. No complaints. Objective Last 24 Hour Vital Signs Date Time Temp Pulse Resp B/P (MAP) Pulse Ox O2 Delivery O2 Flow Rate FiO2 02/07/20 09:00 Room Air 02/07/20 08:00 99.3 65 16 114/67 (83) 97 02/07/20 04:30 98.5 53 18 126/66 (86) 96 02/07/20 00:00 98.3 54 18 131/76 (94) 97 02/06/20 21:00 Room Air 02/06/20 20:00 97.1 60 18 103/61 (75) 98 02/06/20 16:00 98.0 59 18 120/68 (85) 97 02/06/20 15:37 98.1 97 Room Air 02/06/20 12:00 98.9 55 18 127/75 (92) 97 Intake and Output 02/06/20 02/07/20 19:00 07:00 Intake Total 1091 ml Output Total 1580 ml 500 ml Balance -489 ml -500 ml Intake Oral 1091 ml Output Urine Total 1580 ml 500 ml Laboratory Tests 02/07/20 06:10: Sodium Level 139, Potassium Level 4.1, Chloride Level 104, Carbon Dioxide Level 27, Anion Gap 9, Blood Urea Nitrogen 20H, Creatinine 1.1, Estimat Glomerular Filtration Rate > 60, Glucose Level 92, Calcium Level 8.1L, Phosphorus Level 3.5 , Magnesium Level 2.1 Height (Feet): 5 Height (Inches): 7.00 Weight (Pounds): 164 General Appearance: no apparent distress, alert, alert oriented x3 EENT: normal ENT inspection Neck: normal alignment, supple, normal inspection Cardiovascular: normal rate, regular rhythm, no gallop/murmur, no JVD Respiratory/Chest: chest wall non-tender, lungs clear, normal breath sounds, no respiratory distress, no accessory muscle use Abdomen: normal bowel sounds, non tender, soft, no organomegaly, no mass Pelvis: normal external exam Extremities: normal range of motion, non-tender, normal inspection Edema: no edema noted Arm (L), no edema noted Arm (R), no edema noted Leg (L), no edema noted Leg (R), no edema noted Pedal (L), no edema noted Pedal (R), no edema noted 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 Feb 07, 2020 10:05
--- NOTE | 2020-02-07 10:53 | NUR ---
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
[2020-02-07] MEDS: Tums 500mg ORAL SCH ×3 (11:00→17:02)
[2020-02-07 12:00] VITALS: BP 110/64
--- NOTE | 2020-02-07 12:02 | NUR ---
CASE MANAGEMENT: REVIEW 02/06/20 SI: ACUTE ENCEPHALOPATHY . DELIRIUM . HYPOCALCEMIA . CONFUSION AND TREMORS 98.0 73 18 118/72 97% ROOM AIR BUN 24 ALB 3.0 IS: HEPARIN SQ BID ASA PO QD IV VENOFER QHS X5 BAGS \: 3E MED SURG UNIT DCP: PATIENT IS FROM HOME PLAN: PLACEMENT CASE MANAGEMENT: REVIEW 02/07/20 SI: ACUTE ENCEPHALOPATHY . DELIRIUM . HYPOCALCEMIA . CONFUSION AND TREMORS 99.3 65 16 114/67 97% ROOM AIR BUN 20 CA+ 8.1 IS: HEPARIN SQ BID ASA PO QD IV VENOFER QHS X5 BAGS \: 3E MED SURG UNIT DCP: PATIENT IS FROM HOME PLAN: PLACEMENT
--- NOTE | 2020-02-07 12:10 | NUR ---
*-* INSURANCE *-* UPDATED CLINICAL HAVE BEEN FAXED TO: [place] [facility]#[phone] fax#[phone] NEED TOMASZ FROM INSURANCE Addendum: 02/07/20 at 1216 by AARTI HUMMEL LVN TOBY [place]zon vm for insurance to call back to assist with placement T: [phone] [place]: [facility] requiring TOMASZ from insurance
--- NOTE | 2020-02-07 14:12 | Neurology Progress Note ---
Interim History Interim History ROS Limited/Unobtainable: No Interim History able to stand Objective Physical Exam Last Vital Signs Date Time Temp Pulse Resp B/P (MAP) Pulse Ox O2 Delivery O2 Flow Rate FiO2 02/07/20 12:00 98.9 69 17 110/64 (79) 97 02/07/20 09:00 Room Air Laboratory Tests Test 02/07/20 06:10 Sodium Level 139 MMOL/L (136-145) Potassium Level 4.1 MMOL/L (3.5-5.1) Chloride Level 104 MMOL/L (98-107) Carbon Dioxide Level 27 MMOL/L (21-32) Anion Gap 9 mmol/L (5-15) Blood Urea Nitrogen 20 mg/dL (7-18) H Creatinine 1.1 MG/DL (0.55-1.30) Estimat Glomerular Filtration Rate > 60 mL/min (>60) Glucose Level 92 MG/DL (74-106) Calcium Level 8.1 MG/DL (8.5-10.1) L Phosphorus Level 3.5 MG/DL (2.5-4.9) Magnesium Level 2.1 MG/DL (1.8-2.4) Head: normocophalic Neck: no rigidity Neurologic Exam Mental Status: awake, alert Speech: normal speech Objective COnfused tangential, alert Follows commands LE weakness with spasticity Impression/Recommendations Problems: (1) Hypomagnesemia (2) Hypokalemia (3) Hypocalcemia (4) Delirium (5) Microcytic anemia Status: stable, progressing Diagnostic Impression Acute encephalopathy, metabolic Hypocalcemia Tremors LE weakness IVFs Replace CA PT Ciro Fry MD Feb 07, 2020 14:12
[2020-02-07 16:00] VITALS: BP 121/68
--- NOTE | 2020-02-07 17:55 | NUR ---
NURSE HAND-OFF: Important Events on Shift: Patient Status: Diet: Regular Pending Orders: Pending Results/Labs: Pending MD notification: Latest Vital Signs: Temperature 100.0 , Pulse 57 , B/P 121 /68 , Respiratory Rate 16 , O2 SAT 97 , Room Air, O2 Flow Rate . Vital Sign Comment: Latest Quach Fall Score: 45 Fall Risk: High Risk Safety Measures: Call light Within Reach, Bed Alarm Zone 2, Side Rails x2, yellow socks , Bed position Low and Locked. Fall Precautions: Close to Nurse station Yellow Socks Patient Fall Education Report given to . Addendum: 02/07/20 at 1914 by Kassie Montemayor RN Report given to John LYNCH
--- NOTE | 2020-02-07 19:10 | NUR ---
NURSE NOTES: Receive a report from CRIS Fernando. Round is done. Pt is awake and alert. Verbally responsive. Noted tremor on left arm, which MD is aware. Denies any pain. Provide fall precautions. Call light within reach. On bed alarm. Will continue to monitor.
--- NOTE | 2020-02-07 19:39 | Nephrology Progress Note ---
Assessment/Plan Plan #QUINTON #hypokalemia #hypocalcemia #LE Weakness #Tremors #Confusion #Hypokalemia #Hypomagnesemia - Magnesium repleted - Monitor electrolytes -Monitor CBC - avoid nephrotoxins - strict I&Os - monitor UOP Subjective ROS Limited/Unobtainable: No Constitutional: Reports: weakness Subjective ambulated earlier today no complaints Objective Objective Last 24 Hour Vital Signs Date Time Temp Pulse Resp B/P (MAP) Pulse Ox O2 Delivery O2 Flow Rate FiO2 02/07/20 16:00 100.0 57 16 121/68 (85) 97 02/07/20 12:00 98.9 69 17 110/64 (79) 97 02/07/20 09:00 Room Air 02/07/20 08:00 99.3 65 16 114/67 (83) 97 02/07/20 04:30 98.5 53 18 126/66 (86) 96 02/07/20 00:00 98.3 54 18 131/76 (94) 97 02/06/20 21:00 Room Air 02/06/20 20:00 97.1 60 18 103/61 (75) 98 Intake and Output 02/06/20 02/07/20 19:00 07:00 Intake Total 1091 ml Output Total 1580 ml 500 ml Balance -489 ml -500 ml Intake Oral 1091 ml Output Urine Total 1580 ml 500 ml Laboratory Tests 02/07/20 06:10: Sodium Level 139, Potassium Level 4.1, Chloride Level 104, Carbon Dioxide Level 27, Anion Gap 9, Blood Urea Nitrogen 20H, Creatinine 1.1, Estimat Glomerular Filtration Rate > 60, Glucose Level 92, Calcium Level 8.1L, Phosphorus Level 3.5 , Magnesium Level 2.1 Height (Feet): 5 Height (Inches): 7.00 Weight (Pounds): 164 Hugo Ortiz M.D. Feb 07, 2020 19:39
[2020-02-07 20:00] VITALS: BP 114/66
[2020-02-07] MEDS: Iron Sucrose 100 MG in NS 55 ML IV SCH (20:39)
--- NOTE | 2020-02-07 21:00 | NUR ---
NURSE NOTES: No chilling or febrile sensation. Given prn MOM for no BM since 820. Will continue to follow up.
[2020-02-08] VITALS: BP 123/76
[2020-02-08 04:00] VITALS: BP 116/75
--- NOTE | 2020-02-08 06:04 | NUR ---
NURSE HAND-OFF: Important Events on Shift:[] Patient Status: [] Diet: [] Pending Orders: [] Pending Results/Labs:[] Pending MD notification:[] Latest Vital Signs: Temperature 98.8 , Pulse 60 , B/P 116 /75 , Respiratory Rate 18 , O2 SAT 97 , Room Air, O2 Flow Rate . Vital Sign Comment: [] Latest Quach Fall Score: 45 Fall Risk: High Risk Safety Measures: Call light Within Reach, Bed Alarm Zone 1, Side Rails Side Rails x2, Bed position Low and Locked. Fall Precautions: Yellow Socks Yellow Gown Door Sign Patient Fall Education Report given to [].
[2020-02-08 07:19] LABS: ALANINE AMINOTRANSFERASE 68 U/L (12-78); ALBUMIN 3.1 G/DL (3.4-5.0); ALBUMIN/GLOBULIN RATIO 0.8 (1.0-2.7); ALKALINE PHOSPHATASE 90 U/L (46-116); ANION GAP 5 mmol/L (5-15); ASPARTATE AMINO TRANSFERASE 35 U/L (15-37); BILIRUBIN,TOTAL 0.4 MG/DL (0.2-1.0); BLOOD UREA NITROGEN 19 mg/dL (7-18); CALCIUM 8.6 MG/DL (8.5-10.1); CARBON DIOXIDE 29 MMOL/L (21-32); CHLORIDE 105 MMOL/L (98-107); POTASSIUM 4.2 MMOL/L (3.5-5.1); SODIUM 139 MMOL/L (136-145)
[2020-02-08 07:21] LABS: BASOPHILS % (AUTO) 1.2 % (0.0-2.0); EOSINOPHILS % (AUTO) 1.4 % (0.0-3.0); HEMATOCRIT 39.6 % (42.0-52.0); HEMOGLOBIN 11.7 G/DL (14.2-18.0); LYMPHOCYTES % (AUTO) 20.6 % (20.0-45.0); MEAN CORPUSCULAR VOLUME 69 FL (80-99); MONOCYTES % (AUTO) 12.3 % (1.0-10.0); NEUTROPHILS % (AUTO) 64.5 % (45.0-75.0); PLATELET COUNT 343 K/UL (150-450); RED BLOOD COUNT 5.72 M/UL (4.70-6.10); RED CELL DISTRIBUTION WIDTH 12.8 % (11.6-14.8); WHITE BLOOD COUNT 6.4 K/UL (4.8-10.8)
--- NOTE | 2020-02-08 07:29 | NUR ---
NURSE HAND-OFF: Important Events on Shift:[still noted tremors] Patient Status: [] Diet: [regular] Pending Orders: [] Pending Results/Labs:[CBC, BMP] Pending MD notification:[] Latest Vital Signs: Temperature 98.8 , Pulse 60 , B/P 116 /75 , Respiratory Rate 18 , O2 SAT 97 , Room Air, O2 Flow Rate . Vital Sign Comment: [] Latest Quach Fall Score: 45 Fall Risk: High Risk Safety Measures: Call light Within Reach, Bed Alarm Zone 1, Side Rails Side Rails x2, Bed position Low and Locked. Fall Precautions: Yellow Socks Yellow Gown Door Sign Patient Fall Education Report given to [[facility] [place]].
--- NOTE | 2020-02-08 07:30 | NUR ---
NURSE NOTES: Patient is in bed awake and able to verbalize needs. Stable. Mild tremors noted in all extremities. Patient instructed to use call light for assistance, verbalized understanding. Patient is in bed in locked and lowest position with call light within reach. All safety measures provided. All needs met at this time. WIll continue to monitor.
[2020-02-08 08:00] VITALS: BP 101/60
[2020-02-08] MEDS: Tums 500mg ORAL SCH ×2 (08:32→12:34)
[2020-02-08] MEDS: Heparin 5000 units/ml inj SUBQ SCH (08:32)
--- NOTE | 2020-02-08 09:14 | Nephrology Progress Note ---
Assessment/Plan Plan #QUINTON #hypokalemia #hypocalcemia #LE Weakness #Tremors #Confusion #Hypokalemia #Hypomagnesemia - Magnesium repleted - Monitor electrolytes -Monitor CBC - avoid nephrotoxins - strict I&Os - monitor UOP Subjective ROS Limited/Unobtainable: No Constitutional: Reports: weakness HEENT: Denies: no symptoms, eye pain, blurred vision, tearing, double vision, ear pain, ear discharge, nose pain, nose congestion, throat pain, throat swelling, mouth pain, mouth swelling, other Genitourinary: Denies: no symptoms, burning, discharge, frequency, flank pain, hematuria, incontinence, pain, urgency, other Neurologic/Psychiatric: Denies: no symptoms, anxiety, depressed, emotional problems, headache, numbness, paresthesia, pre-existing deficit, seizure, tingling, tremors, weakness, other Subjective ambulated earlier today no complaints Objective Objective Last 24 Hour Vital Signs Date Time Temp Pulse Resp B/P (MAP) Pulse Ox O2 Delivery O2 Flow Rate FiO2 02/08/20 04:00 98.8 60 18 116/75 (89) 97 02/08/20 00:00 98.0 55 18 123/76 (92) 97 02/07/20 21:00 Room Air 02/07/20 20:00 98.9 59 18 114/66 (82) 98 02/07/20 16:00 100.0 57 16 121/68 (85) 97 02/07/20 12:00 98.9 69 17 110/64 (79) 97 Intake and Output 02/07/20 02/08/20 18:59 06:59 Intake Total 1636 ml 100 ml Output Total 1880 ml 700 ml Balance -244 ml -600 ml Intake Oral 1636 ml 100 ml Output Urine Total 1880 ml 700 ml # Voids 1 Laboratory Tests 02/08/20 05:20: White Blood Count 6.4, Red Blood Count 5.72, Hemoglobin 11.7L, Hematocrit 39.6L , Mean Corpuscular Volume 69L, Mean Corpuscular Hemoglobin 20.5L, Mean Corpuscular Hemoglobin Concent 29.6L, Red Cell Distribution Width 12.8, Platelet Count 343, Mean Platelet Volume 6.2L, Neutrophils (%) (Auto) 64.5, Lymphocytes (%) (Auto) 20.6, Monocytes (%) (Auto) 12.3H, Eosinophils (%) (Auto) 1.4, Basophils (%) (Auto) 1.2, Sodium Level 139, Potassium Level 4.2, Chloride Level 105, Carbon Dioxide Level 29, Anion Gap 5, Blood Urea Nitrogen 19H, Creatinine 1.0, Estimat Glomerular Filtration Rate > 60, Glucose Level 97, Calcium Level 8.6, Total Bilirubin 0.4, Aspartate Amino Transf (AST/SGOT) 35, Alanine Aminotransferase (ALT/SGPT) 68, Alkaline Phosphatase 90, Total Protein 7.2, Albumin 3.1L, Globulin 4.1, Albumin/Globulin Ratio 0.8L Height (Feet): 5 Height (Inches): 7.00 Weight (Pounds): 164 Hugo Ortiz M.D. Feb 08, 2020 09:14
--- NOTE | 2020-02-08 09:46 | NUR ---
*-*DISCHARGE PLANNING*-* PLACED A CALL TO [facility] [employer], S/W JAMAL , STATED SHE WILL CONTACT EXCEPTING FACILITIES
--- NOTE | 2020-02-08 09:48 | NUR ---
*-*DISCHARGE PLANNING*-* PATIENT HAS BEEN REFERRED TO: [facility] P: [phone] S/W ANA, STATED THEY NEED AN TOMASZ, FROM INSURANCE. POST DOCTORAL FELLOW NOTIFIED HIM THAT THE BUNDLE CUTTER FROM [employer] WILL BE CONTACTING HIM REGARDING AN TOMASZ. [facility] P: [phone] S/W CELIA, STATED NEED AN TOMASZ, FROM INSURANCE. POST DOCTORAL FELLOW NOTIFIED HIM SOME THAT THE BUNDLE CUTTER FROM [employer] INS[employer] WILL BE CONTACTING HIM REGARDING AN TOMASZ.
--- NOTE | 2020-02-08 11:00 | NUR ---
*-*DISCHARGE PLANNING*-* PATIENT HAS BEEN ACCEPTED AND WILL BE DISCHARGE BACK TO: [facility] P: [phone] S/W CHI, PATIENT HAS BEEN ACCEPTED TO ROOM# 40.A SKILLED ~~~~~NOTIFIED NURSES~~~ ~~~~~~~~~~~~NEED DISCHARGE ORDER~~~~~~~~~~~~~~~~~~~
--- NOTE | 2020-02-08 11:23 | General Progress Note ---
Assessment/Plan Status: stable, progressing Assessment/Plan: 59-year-old gentleman with no significant past medical history presents to the emergency room with confusion and tremors for 1 week. He was encephalopathic likely from the hypocalcemia of 6.2 corrected for albumin. As his calcium normalized his encephalopathy improved. He was seen by neurology which preformed MRI of his Spine which was unremarkable. He was evaluated by phycology and was found to be severely anxious and was started on Seroquel at bedtime. He will go to SNF for PT since he is unsteady on his feet. He should continue Venofer 100mg for 2 more days for his microcytic anemia and will follow out patient for coloscopy. SNF DC held for waxing and waning mental cognition. #Hypocalcemia #Tremors #Confusion #Hypokalemia #Hypomagnesemia - cont calcium supplementation - Magnesium repleted - Monitor electrolytes periodically at SNF - cont MVI - Stable for discharge to [facility] #Microcytic anemia - Iron studies show iron deficiency - Venofer 100mg for 0 more days - FOBT negative - Monitor CBC Subjective Date patient seen: Feb 08, 2020 Time patient seen: 09:00 ROS Limited/Unobtainable: No Constitutional: Denies: chills Cardiovascular: Denies: chest pain Respiratory: Denies: cough Allergies: Coded Allergies: No Known Allergies (Unverified , 02/02/20) Subjective Follow up for medical management of hypocalcemia, acute metabolic encephalopathy No acute issues overnight SNF arranged at [facility] today, spoke with outsole caser Objective Last 24 Hour Vital Signs Date Time Temp Pulse Resp B/P (MAP) Pulse Ox O2 Delivery O2 Flow Rate FiO2 02/08/20 09:00 Room Air 02/08/20 08:00 98.2 71 21 101/60 (74) 97 02/08/20 04:00 98.8 60 18 116/75 (89) 97 02/08/20 00:00 98.0 55 18 123/76 (92) 97 02/07/20 21:00 Room Air 02/07/20 20:00 98.9 59 18 114/66 (82) 98 02/07/20 16:00 100.0 57 16 121/68 (85) 97 02/07/20 12:00 98.9 69 17 110/64 (79) 97 Intake and Output 02/07/20 02/08/20 19:00 07:00 Intake Total 1636 ml 100 ml Output Total 1880 ml 700 ml Balance -244 ml -600 ml Intake Oral 1636 ml 100 ml Output Urine Total 1880 ml 700 ml # Voids 1 Laboratory Tests 02/08/20 05:20: White Blood Count 6.4, Red Blood Count 5.72, Hemoglobin 11.7L, Hematocrit 39.6L , Mean Corpuscular Volume 69L, Mean Corpuscular Hemoglobin 20.5L, Mean Corpuscular Hemoglobin Concent 29.6L, Red Cell Distribution Width 12.8, Platelet Count 343, Mean Platelet Volume 6.2L, Neutrophils (%) (Auto) 64.5, Lymphocytes (%) (Auto) 20.6, Monocytes (%) (Auto) 12.3H, Eosinophils (%) (Auto) 1.4, Basophils (%) (Auto) 1.2, Sodium Level 139, Potassium Level 4.2, Chloride Level 105, Carbon Dioxide Level 29, Anion Gap 5, Blood Urea Nitrogen 19H, Creatinine 1.0, Estimat Glomerular Filtration Rate > 60, Glucose Level 97, Calcium Level 8.6, Total Bilirubin 0.4, Aspartate Amino Transf (AST/SGOT) 35, Alanine Aminotransferase (ALT/SGPT) 68, Alkaline Phosphatase 90, Total Protein 7.2, Albumin 3.1L, Globulin 4.1, Albumin/Globulin Ratio 0.8L Height (Feet): 5 Height (Inches): 7.00 Weight (Pounds): 164 General Appearance: no apparent distress, alert Neck: supple Cardiovascular: normal rate, regular rhythm Respiratory/Chest: lungs clear, normal breath sounds, no respiratory distress Abdomen: non tender, soft Sanjay Ellington MD Feb 08, 2020 11:23
--- NOTE | 2020-02-08 11:26 | NUR ---
NURSE NOTES: Front wheel walker at bedside. Patient [facility] Next of kin García Dos Santos notified of transfer, all questions and concerns addressed.
[2020-02-08 12:00] VITALS: BP 116/67
--- NOTE | 2020-02-08 12:39 | NUR ---
*-*DISCHARGE PLANNED*-* PATIENT HAS BEEN ACCEPTED AND WILL BE [facility]CHARGE BACK [facility] P: [phone] FOR NURSE TO NURSE REPORT ROOM# 40.A SKILLED TRANSPORTATION SET UP WITH [facility] ETA SET FOR 2PM S/W ANNA PH: [phone] S/W PATIENTS BROTHER DANI TEJEDA, WHO IS IN AGREEMENT WITH DISCHARGE PLAN. Addendum: 02/08/20 at 1250 by YUKO SINGLETON CM *-*DISCHARGE PLANNED*-* PATIENT HAS BEEN ACCEPTED AND WILL BE DISCHARGE BACK TO: [facility] P: [phone] FOR NURSE TO NURSE REPORT ROOM# 40.A SKILLED TRANSPORTATION SET UP WITH [facility] ETA SET FOR 3PM S/W ANNA PH: [phone] S/W PATIENTS BROTHER DANI TEJEDA, WHO IS IN AGREEMENT WITH DISCHARGE PLAN.
--- NOTE | 2020-02-08 13:29 | NUR ---
NURSE NOTES: Report given to Key LYNCH at [facility].
--- NOTE | 2020-02-08 15:30 | NUR ---
NURSE NOTES: Patient discharged to [facility] as ordered. All belongings sent with patient. All paperwork and printed discharge instructions given to EMT. Skin is c/d/i. Patient's family made aware. Key LYNCH at [facility] aware of transfer. FWW sent with patient.
--- NOTE | 2020-02-08 15:34 | NUR ---
NURSE NOTES:picked up by [facility],report given to alexandr,belongings including walker confirmed.apoorva d/cd.pt. stable on flower buncher or picker. primary rn(lucy)[facility].
--- NOTE | 2020-02-08 18:43 | Neurology Progress Note ---
Interim History Interim History ROS Limited/Unobtainable: No Interim History ambulating plan for dc Objective Physical Exam Last Vital Signs Date Time Temp Pulse Resp B/P (MAP) Pulse Ox O2 Delivery O2 Flow Rate FiO2 02/08/20 12:00 97.7 78 21 116/67 (83) 96 02/08/20 09:00 Room Air Laboratory Tests Test 02/08/20 05:20 White Blood Count 6.4 K/UL (4.8-10.8) Red Blood Count 5.72 M/UL (4.70-6.10) Hemoglobin 11.7 G/DL (14.2-18.0) L Hematocrit 39.6 % (42.0-52.0) L Mean Corpuscular Volume 69 FL (80-99) L Mean Corpuscular Hemoglobin 20.5 PG (27.0-31.0) L Mean Corpuscular Hemoglobin Concent 29.6 G/DL (32.0-36.0) L Red Cell Distribution Width 12.8 % (11.6-14.8) Platelet Count 343 K/UL (150-450) Mean Platelet Volume 6.2 FL (6.5-10.1) L Neutrophils (%) (Auto) 64.5 % (45.0-75.0) Lymphocytes (%) (Auto) 20.6 % (20.0-45.0) Monocytes (%) (Auto) 12.3 % (1.0-10.0) H Eosinophils (%) (Auto) 1.4 % (0.0-3.0) Basophils (%) (Auto) 1.2 % (0.0-2.0) Sodium Level 139 MMOL/L (136-145) Potassium Level 4.2 MMOL/L (3.5-5.1) Chloride Level 105 MMOL/L (98-107) Carbon Dioxide Level 29 MMOL/L (21-32) Anion Gap 5 mmol/L (5-15) Blood Urea Nitrogen 19 mg/dL (7-18) H Creatinine 1.0 MG/DL (0.55-1.30) Estimat Glomerular Filtration Rate > 60 mL/min (>60) Glucose Level 97 MG/DL (74-106) Calcium Level 8.6 MG/DL (8.5-10.1) Total Bilirubin 0.4 MG/DL (0.2-1.0) Aspartate Amino Transf (AST/SGOT) 35 U/L (15-37) Alanine Aminotransferase (ALT/SGPT) 68 U/L (12-78) Alkaline Phosphatase 90 U/L (46-116) Total Protein 7.2 G/DL (6.4-8.2) Albumin 3.1 G/DL (3.4-5.0) L Globulin 4.1 g/dL Albumin/Globulin Ratio 0.8 (1.0-2.7) L Head: normocophalic Neck: no rigidity Neurologic Exam Mental Status: awake, alert Speech: normal speech Objective COnfused tangential, alert Follows commands LE weakness with spasticity Impression/Recommendations Problems: (1) Hypomagnesemia (2) Hypokalemia (3) Hypocalcemia (4) Delirium (5) Microcytic anemia Status: stable, progressing Diagnostic Impression Acute encephalopathy, metabolic Hypocalcemia Tremors LE weakness IVFs Replace CA PT Ciro Fry MD Feb 08, 2020 18:43
--- NOTE | 2020-02-09 00:05 | Psych Consult Progress Note ---
Psychiatry Progress Note Psychiatry Progress Note Subjective the pt is more lucid and able to answer the questions more clearly complained o anxiety cognition improved slept well Neurological/Psychiatric: Denies: no symptoms, anxiety, depressed, emotional problems, headache, numbness, paresthesia, pre-existing deficit, seizure, tingling, tremors, weakness, other Allergies: Coded Allergies: No Known Allergies (Unverified , 02/02/20) Objective Data Height (Feet): 5 Height (Inches): 7.00 Weight (Pounds): 164 Additional Comments: awake, oriented to self, place, situation, did not know the date. Mood is neutral. Affect is constricted, congruent with mood. Thought process is concrete. Thought content, no suicidal or homicidal ideation. Cognition is improving. Insight and judgment is limited. Assessment/Plan Anna I: ASSESSMENT: Anna I Acute encephalopathy, metabolic due to electrolyte imbalance. Anna II Deferred. Anna III As above. Anna IV Low. Anna V 20. PLAN: 1. May benefit from low-dose of antipsychotics. 2. We will add Seroquel 25 mg at bedtime p.r.n. 3. Correct the underlying cause of delirium. Status: stable, progressing Status Narrative ASSESSMENT: Anna I Acute encephalopathy, metabolic due to electrolyte imbalance. Anna II Deferred. Anna III As above. Anna IV Low. Anna V 20. PLAN: 1. May benefit from low-dose of antipsychotics. 2. We will add Seroquel 25 mg at bedtime p.r.n. 3. Correct the underlying cause of delirium. Assessment/Plan: ASSESSMENT: Anna I Acute encephalopathy, metabolic due to electrolyte imbalance. Anna II Deferred. Anna III As above. Anna IV Low. Anna V 20. PLAN: 1. May benefit from low-dose of antipsychotics. 2. We will add Seroquel 25 mg at bedtime p.r.n. 3. Correct the underlying cause of delirium. Tara Kern MD Feb 09, 2020 00:05
== END 2020-02-08 15:36 | disposition short-term general hospital (02) | DRG 425 ==
LOC: EDBD 10:30 → EMR 10:40 → 2E 13:10 → EDBEDREQ 15:07 → 3E 02-03 20:39
DX: E83.51 Hypocalcemia (principal); G93.41 Metabolic encephalopathy; N17.9 Acute kidney failure, unspecified; E87.6 Hypokalemia; E83.42 Hypomagnesemia; D50.9 Iron deficiency anemia, unspecified; D64.9 Anemia, unspecified
CPT/HCPCS: 36415; 70450; 71045; 72146; 72148; 80048; 80053; 82306; 82330; 82550; 82803; 83519; 83540; 83550; 83735; 83970; 84100; 84443; 84484; 85025; 93005; 96361; 96365; 99291; G0480; J2405; J7030; J8499; U0002